=== PATIENT | female | born 1965 | race Caucasian/White ===

== ENCOUNTER 2018-07-15 17:47 | Inpatient (IN) | payer MEDICARE ==
[~2018-07-15] VITALS: Ht 162.6 cm; Wt 74.1 kg
[2018-07-15] MEDS ORDERED: SOD CHLORIDE 0.9% 750 ML IV ONE (19:00)
[2018-07-15] MEDS ORDERED: LABETALOL HCL 20MG INJ IV ONE (19:30)
[2018-07-15] MEDS ORDERED: AMOX1TAB10 PO (19:43)
[2018-07-15] MEDS ORDERED: HYDR25TA6 PO (19:43)
[2018-07-15] MEDS ORDERED: INSULIN REGULAR, HUMAN 100 UNIT/1 ML 3ML VIAL SC ONE (20:30)
[2018-07-15] MEDS ORDERED: hydrALAzine 20 MG INJ IV ONE (20:30)
[2018-07-15] MEDS: ACCU-CHEK XX SCH ×4 (21:27→23:30)
[2018-07-15] MEDS ORDERED: INSULIN HUMAN REGULAR 100 UNIT in SOD CHLORIDE 0.9% 99 ML IV SCH ×2 (21:30→23:00)
[2018-07-15] MEDS ORDERED: DEXTROSE 50% 50 ML SYRINGE IV PRN ×4 (21:30→22:30)
--- NOTE | 2018-07-15 21:43 | ERD ---
ER Documentation Chief Complaint Chief Complaint sent from clinic d/t high blood sugar 700s; has not taken insulin 6 mos HPI This is a 53-year-old female with a history of diabetes and hypertension, who presents for evaluation of a blood sugar greater than 700. Patient also with hypertension, she is on lisinopril and Lasix (she does not have a history of CHF), but had been given these medications by her primary care doctor in [facility]. Over the last 6 months, she has felt depressed about the state of her health, and has discontinued her medications, she denies any suicidal or homicidal ideations. She has now moved to [place], where her daughter is helping her out, she denies chest pain or shortness of breath. She has not had any confusion, no fever. ROS All systems reviewed and are negative except as per history of present illness. Medications Home Meds Reported Medications Hydrochlorothiazide* (Hydrochlorothiazide*) 25 Mg Tab, 25 MG PO DAILY, #30 TAB 07/15/18 Amoxicillin/Potassium Clav (Amox-Clav 875-125 mg Tablet) 875-125 mg Tab, 1 TAB PO BID, #20 TAB 07/15/18 Allergies Allergies: Coded Allergies: No Known Allergy (Unverified , 07/15/18) PMhx/Soc History of Surgery: Yes (eye, nose, c sections x3, tonsillectomy ) Anesthesia Reaction: No Hx Neurological Disorder: No Hx Respiratory Disorders: No Hx Cardiac Disorders: Yes (htn, high cholesterol ) Hx Psychiatric Problems: No Hx Miscellaneous Medical Probl: Yes (hyperthyroidism, DM) Hx Alcohol Use: No Hx Substance Use: No Hx Tobacco Use: No Smoking Status: Former smoker Physical Exam Vitals Vital Signs Date Temp Pulse Resp B/P (MAP) Pulse Ox O2 O2 Flow FiO2 Time Delivery Rate 07/15/18 86 16 120/70 100 Room Air 20:49 (87) 07/15/18 98.6 80 13 190/63 99 Room Air 20:16 (105) 07/15/18 79 11 193/65 100 Room Air 20:00 (107) 07/15/18 75 15 213/87 100 Room Air 19:00 (129) 07/15/18 74 14 202/104 99 Room Air 18:51 (136) 07/15/18 97.0 85 20 245/108 100 17:58 (153) Physical Exam Const: No acute distress, nontoxic, afebrile, 53-year-old female who appears older than her stated age Head: Atraumatic Eyes: Normal Conjunctiva ENT: Normal External Ears, Nose and Mouth. Neck: Full range of motion. No meningismus. Resp: Clear to auscultation bilaterally Cardio: Regular rate and rhythm, no murmurs Abd: Soft, non tender, non distended. Normal bowel sounds Skin: No petechiae or rashes Back: No midline or flank tenderness Ext: No cyanosis, or edema Neur: Awake and alert Psych: Normal Mood and Affect Result Diagram: 07/15/187 07/15/18 185 Results 24 hrs Laboratory Tests Test 07/15/18 17:58 07/15/18 18:37 07/15/18 18:57 07/15/18 20:21 Bedside Glucose > 595 mg/dL > 595 mg/dL Blood Gas Blood venous Specimen Source Arterial Blood 07/15/2018 7:00:28 Date Drawn PM Arterial Blood VENOUS LINE Gas Puncture Site [place] Test N/A Venous Blood pH 7.332 Venous Blood pCO2 44.0 mmHG (Temp Corrected) Venous Blood pO2 25.0 mmHG (Temp Corrected) Venous Blood HCO3 22.8 mmol/L Venous Blood 49.6 mmHG Oxygen Saturation Venous Blood Base -3.1 mmol/L Excess Venous Blood 11.7 g/dl Total Hemoglobin Venous Blood 49.4 % Oxyhemoglobin Venous Blood 0.1 % Methemoglobin Carboxyhemoglobin 0.4 % Blood Gas 37.0 C Temperature Blood Gas ROOM AIR Modality FiO2 21.0 % Blood Gas MG Notified Whom Blood Gas 07/15/2018 7:06:20 Notified Time PM White Blood Count 12.1 10^3/ul Red Blood Count 4.31 10^6/ul Hemoglobin 11.3 g/dl Hematocrit 35.6 % Mean Corpuscular 82.6 fl Volume Mean Corpuscular 26.2 pg Hemoglobin Mean Corpuscular 31.7 g/dl Hemoglobin Concen t Red Cell 14.0 % Distribution Width Platelet Count 356 10^3/UL Mean Platelet 12.2 fl Volume Immature 1.200 % Granulocytes % Neutrophils % 70.0 % Lymphocytes % 18.7 % Monocytes % 7.8 % Eosinophils % 1.6 % Basophils % 0.7 % Nucleated Red 0.0 /100WBC Blood Cells % Immature 0.150 10^3/ul Granulocytes # Neutrophils # 8.5 10^3/ul Lymphocytes # 2.3 10^3/ul Monocytes # 0.9 10^3/ul Eosinophils # 0.2 10^3/ul Basophils # 0.1 10^3/ul Nucleated Red 0.0 10^3/ul Blood Cells # Prothrombin Time 11.8 Sec Prothrombin Time 0.9 Ratio INR International 0.86 Normalized Ratio Sodium Level 124 mmol/L Potassium Level 3.8 mmol/L Chloride Level 93 mmol/L Carbon Dioxide 24 mmol/L Level Anion Gap 7 Blood Urea 35 mg/dl Nitrogen Creatinine 2.02 mg/dl Est Glomerular 26 mL/min Filtrat Rate mL/min Glucose Level 854 mg/dl Calcium Level 8.6 mg/dl Phosphorus Level 4.9 mg/dl Magnesium Level 2.0 mg/dl Total Bilirubin 0.3 mg/dl Direct Bilirubin 0.00 mg/dl Indirect 0.3 mg/dl Bilirubin Aspartate Amino 16 IU/L Transf (AST/SGOT) Alanine 7 IU/L Aminotransferase (ALT/SGPT) Alkaline 298 IU/L Phosphatase Troponin I < 0.012 ng/ml Total Protein 6.6 g/dl Albumin 2.9 g/dl Globulin 3.70 g/dl Albumin/Globulin 0.78 Ratio Test 07/15/18 21:17 Bedside Glucose > 595 mg/dL Current Medications Medications Dose Sig/Esme Start Time Status Last (Trade) Ordered Route PRN Stop Time Admin Dose Reason Admin Sodium 750 ml @ ONCE ONCE 07/15/18 DC 07/15/18 Chloride 750 mls/hr IV 19:00 07/15/18 19:05 19:59 Labetalol 20 mg ONCE ONCE 07/15/18 DC 07/15/18 HCl IV 19:30 07/15/18 19:37 (Labetalol) 19:31 Insulin 20 unit ONCE ONCE 07/15/18 DC 07/15/18 Human SC 20:30 07/15/18 20:25 Regular 20:31 (Humulin R) Hydralazine 20 mg ONCE ONCE 07/15/18 DC 07/15/18 HCl IV 20:30 07/15/18 20:25 (Apresoline) 20:31 Discontinue PROTOCOL 07/15/18 DC Miscellaneous all previ... ONCE XX 21:30 07/15/18 21:31 Information (* Miscellaneous Pharmacy Order) Diagnostic 1 ea Q1H XX 07/15/18 07/15/18 Test (Pha) 21:30 21:27 (Accu-Chek) Insulin 100 ml @ 0 PER 07/15/18 Human mls/hr PROTOCOL IV 21:30 Regular 100 unit/ Sodium Chloride Treatment Per 07/15/18 Miscellaneous of protocol XX 21:30 Hypoglycemia: Information 1.BG 51... (* Miscellaneous Pharmacy Order) Dextrose 25 ml Q15M PRN 07/15/18 (D50w IV 21:30 Syringe) .DECREASED GLUCOSE Dextrose 50 ml Q15M PRN 07/15/18 (D50w IV 21:30 Syringe) .DECREASED GLUCOSE Procedures/MDM This is a 53-year-old female presents for reduction of hypertension hyperglycemia. Her blood pressure was initially in the 200s systolics, she was given a dose of labetalol as well as hydralazine, with improvement of her blood pressure. At no time did the patient have chest pain, headache, confusion or any signs of hypertensive emergency. She had no evidence of infection, her blood sugar was noted to be significantly elevated, however she had a normal bicarb, and no anion gap acidosis. She had no evidence of a hyperosmolar state, with no abnormal mental state, and no evidence of DKA. She is given a dose of subcu insulin, however her blood glucose continued to be elevated, that she required admission to the ICU for blood glucose control. Accepting Care Team: Current data and ongoing care discussed. Primary: El Consulting: None Outstanding Data: none Critical Care Time: 35 minutes Treatments/Evaluations: Close monitoring and treatment of unstable vital signs, cardiorespiratory, and neurologic status, while maintaining tight balance of fluid, respiratory, and cardiac interventions. This time includes discussing the case with the patient and the patient's family. This time does not include all procedures stated elsewhere in this record. This time also includes reviewing old records, labs and radiological studies. This time includes examining and re- examining the patient. Additionally, this time also includes arranging care with admitting and consulting physicians. EKG: Rate/Rhythm: Normal Sinus Rhythm QRS, ST, T-waves: No changes consistent w/ acute ischemia Impression: No evidence of ischemia or arrhythmia Departure Diagnosis: Primary Impression: Hyperglycemia Additional Impressions: Hypertension Hypertension type: unspecified Qualified Codes: I10 - Essential (primary) hypertension Chronic kidney disease Chronic kidney disease stage: unspecified stage Qualified Codes: N18.9 - Chronic kidney disease, unspecified Condition: Serious ESQUIVELMAICO MD July 15, 2018 21:43
[2018-07-15] MEDS ORDERED: SOD CHLORIDE 0.9% 1,000 ML IV SCH (22:13)
[2018-07-15] MEDS ORDERED: ALBUTEROL/IPRATROPIUM (NEB) 3 ML AMP NEB PRN (22:30)
[2018-07-15] MEDS ORDERED: ONDANSETRON 4 MG INJ IV PRN (22:30)
[2018-07-15 23:35] VITALS: BP 154/64; PULSE 78; RESP 13
[2018-07-15 23:37] VITALS: PULSE 79
[2018-07-15 23:40] VITALS: PULSE 74; RESP 15
[2018-07-16] VITALS (27 sets, daily range): BP systolic 95–168; BP diastolic 49–94; PULSE 69–82; RESP 10–27; Ht 162.6 cm; Wt 74.1 kg
[2018-07-16] MEDS: ACCU-CHEK XX SCH ×8 (01:07→07:26)
[2018-07-16] MEDS ORDERED: morphine 4 MG/ML VIAL IV ONE (01:14)
[2018-07-16] MEDS ORDERED: MAGNESIUM SULFATE 2 GM/50 ML 50 ML IVPB ONE (02:00)
[2018-07-16] MEDS ORDERED: POTASSIUM CHLORIDE 20 MEQ in SOD CHLORIDE 0.9% 1,000 ML IV SCH (02:51)
[2018-07-16] MEDS: NS + KCL 20 MEQ 1,000 ML IV SCH ×3 (03:00→23:00)
[2018-07-16] MEDS ORDERED: POTASSIUM PHOSPHATE 30 MM in SOD CHLORIDE 0.9% 250 ML IVPB ONE (04:00)
--- NOTE | 2018-07-16 06:03 | HP ---
Date/Time of Note Date/Time of Note DATE: 07/16/18 TIME: 05:58 Assessment/Plan VTE Prophylaxis Pharmacological prophylaxis: heparin Lines/Catheters IV Catheter Type (from Nrsg): Peripheral IV Assessment/Plan Assessment/Plan 1. Hyperglycemia: Patient off medication x6 months -Blood glucose improved on insulin drip -Continue ICU monitoring -Check A1c 2. Presumed acute on CKD -NS IVF -Urine electrolytes -Renal ultrasound 3. Hypertensive emergency: BP better controlled -Patient was initially on Cardene drip in the ER -Adjust BP meds as needed 4. SIRS: Likely stress-induced -Monitor for now 5. Hypothyroidism: Check TSH 6. Normocytic anemia -Check FOBT and ferritin/iron to evaluate for GI bleed and iron deficiency Result Diagram: 07/15/18 1857 07/16/18 0118 Results 24hrs Laboratory Tests Test 07/15/18 17:58 07/15/18 18:37 07/15/18 18:57 07/15/18 20:21 Bedside Glucose > 595 *H > 595 *H Blood Gas Specimen Blood venous Source Arterial Blood 07/15/2018 7:00:28 Date Drawn PM Arterial Blood Gas VENOUS LINE Puncture Site [place] Test N/A Venous Blood pH 7.332 Venous Blood pCO2 44.0 (Temp Corrected) Venous Blood pO2 25.0 (Temp Corrected) Venous Blood HCO3 22.8 Venous Blood 49.6 L Oxygen Saturation Venous Blood Base -3.1 Excess Venous Blood Total 11.7 Hemoglobin Venous Blood 49.4 Oxyhemoglobin Venous Blood 0.1 Methemoglobin Carboxyhemoglobin 0.4 Blood Gas 37.0 Temperature Blood Gas Modality ROOM AIR FiO2 21.0 Blood Gas Notified MG Whom Blood Gas Notified 07/15/2018 7:06:20 Time PM White Blood Count 12.1 H Red Blood Count 4.31 Hemoglobin 11.3 L Hematocrit 35.6 L Mean Corpuscular 82.6 Volume Mean Corpuscular 26.2 L Hemoglobin Mean Corpuscular 31.7 L Hemoglobin Concent Red Cell 14.0 Distribution Width Platelet Count 356 Mean Platelet 12.2 H Volume Immature 1.200 H Granulocytes % Neutrophils % 70.0 Lymphocytes % 18.7 Monocytes % 7.8 Eosinophils % 1.6 Basophils % 0.7 Nucleated Red 0.0 Blood Cells % Immature 0.150 H Granulocytes # Neutrophils # 8.5 H Lymphocytes # 2.3 Monocytes # 0.9 Eosinophils # 0.2 Basophils # 0.1 Nucleated Red 0.0 Blood Cells # Prothrombin Time 11.8 L Prothrombin Time 0.9 Ratio INR International 0.86 Normalized Ratio Sodium Level 124 L Potassium Level 3.8 Chloride Level 93 L Carbon Dioxide 24 Level Anion Gap 7 Blood Urea 35 H Nitrogen Creatinine 2.02 H Est Glomerular 26 L Filtrat Rate mL/min Glucose Level 854 *H Calcium Level 8.6 Phosphorus Level 4.9 Magnesium Level 2.0 Total Bilirubin 0.3 Direct Bilirubin 0.00 Indirect Bilirubin 0.3 Aspartate Amino 16 Transf (AST/SGOT) Alanine 7 L Aminotransferase ( ALT/SGPT) Alkaline 298 H Phosphatase Troponin I < 0.012 Total Protein 6.6 Albumin 2.9 L Globulin 3.70 H Albumin/Globulin 0.78 Ratio Test 07/15/18 21:17 07/15/18 22:00 07/15/18 22:25 07/15/18 23:29 Bedside Glucose > 595 *H > 595 *H 575 *H Urine Color COLORLESS Urine Clarity CLEAR Urine pH 7.0 Urine Specific 1.016 Provencal Urine Ketones TRACE A Urine Nitrite NEGATIVE Urine Bilirubin NEGATIVE Urine Urobilinogen NEGATIVE Urine Leukocyte NEGATIVE Esterase Urine Microscopic 1 RBC Urine Microscopic 0 WBC Urine Hemoglobin NEGATIVE Urine Glucose 3+ H Urine Total 3+ H Protein Test 07/16/18 00:59 07/16/18 01:18 07/16/18 01:40 07/16/18 02:34 Bedside Glucose 297 H 258 H 202 Sodium Level 134 L Potassium Level 2.8 *L Chloride Level 104 # Carbon Dioxide 18 L Level Anion Gap 12 Blood Urea 34 H Nitrogen Creatinine 1.92 H Est Glomerular 27 L Filtrat Rate mL/min Glucose Level 276 #H Calcium Level 9.3 Phosphorus Level 1.7 #L Magnesium Level 1.8 Test 07/16/18 03:47 07/16/18 04:39 07/16/18 05:15 Bedside Glucose 131 148 138 HPI/ROS Admit Date/Time Admit Date/Time July 15, 2018 at 21:21 Hx of Present Illness This is a 53-year-old female with a history of hypertension and diabetes who presented to the ER complaining of generalized weakness, feeling depressed. She has not taken her medication for 6 months. She recently moved from [place] to live with her daughter. When presented to ER, blood pressure was 245/108. She was found to have a blood glucose of around 850, no DKA. Creatinine 2, WBC 12,000, hemoglobin 11. She has been started on insulin drip and admitted to ICU. PMH/Family/Social Past Medical History Constitutional: other (No acute distress) Head: normocephalic, atraumatic Eyes: EOMI, PERRL Respiratory: other (no wheezing or Rhonchi) Cardiovascular: normal pulse Gastrointestinal: soft, non-tender Extremities: normal pulses Medications Current Medications Insulin Human Regular 100 unit/ Sodium Chloride 100 ml @ 0 mls/hr PER PROTOCOL IV Last administered on 07/15/18at 21:48; Admin Dose 6 MLS/HR; Start 07/15/18 at 21:30 Miscellaneous Information (* Miscellaneous Pharmacy Order) Treatment of Hypoglycemia: 1.BG 51... Per protocol XX ; Start 07/15/18 at 21:30 Ondansetron HCl (Zofran Inj) 4 mg Q6H PRN IV NAUSEA AND/OR VOMITING Last administered on 07/16/18at 05:16; Admin Dose 4 MG; Start 07/15/18 at 22:30 Albuterol/ Ipratropium (Duoneb) 3 ml Q2H RESP THERAPY PRN NEB SHORTNESS OF BREATH; Start 07/15/18 at 22:30 Acetaminophen (Tylenol Liquid) 650 mg Q6H PRN PO PAIN LEVEL 1-3 OR FEVER; Start 07/15/18 at 22:30 Famotidine (Pepcid Iv) 20 mg DAILY IV ; Start 07/16/18 at 09:00 Heparin Sodium (Porcine) (Heparin (5000 Units/1ml)) 5,000 unit Q12 SC ; Start 07/16/18 at 09:00 Diagnostic Test (Pha) (Accu-Chek) 1 ea Q1H XX Last administered on 07/16/18at 05:15; Admin Dose 1 EA; Start 07/15/18 at 22:30 Insulin Human Regular 100 unit/ Sodium Chloride 100 ml @ 0 mls/hr PER PROTOCOL IV ; Start 07/15/18 at 23:00 Miscellaneous Information (* Miscellaneous Pharmacy Order) Treatment of Hypoglycemia: 1.BG 51... Per protocol XX ; Start 07/15/18 at 22:30 Dextrose (D50w Syringe) 25 ml Q15M PRN IV .DECREASED GLUCOSE; Start 07/15/18 at 22:30 Dextrose (D50w Syringe) 50 ml Q15M PRN IV .DECREASED GLUCOSE; Start 07/15/18 at 22:30 Potassium Phosphate 30 mm/ Sodium Chloride 260 ml @ 65 mls/hr ONCE ONCE IVPB Last administered on 07/16/18at 04:07; Admin Dose 65 MLS/HR; Start 07/16/18 at 04:00; Stop 07/16/18 at 07:59 Potassium Chloride/Sodium Chloride 1,000 ml @ 100 mls/hr Q10H IV Last admin istered on 07/16/18at 03:00; Admin Dose 100 MLS/HR; Start 07/16/18 at 03:00 Coded Allergies: No Known Allergy (Unverified , 07/15/18) Social History Smoking Status: Former smoker Exam/Review of Systems Vital Signs Vitals Vital Signs Date Temp Pulse Resp B/P (MAP) Pulse Ox O2 O2 Flow FiO2 Time Delivery Rate 07/16/18 74 00:00 07/15/18 15 99 23:40 07/15/18 98.7 154/64 Room Air 23:35 (94) Intake and Output 07/15/18 07/15/18 07/16/18 1515:00 23:00 07:00 IntakeIntake Total 750 ml 487 ml BalanceBalance 750 ml 487 ml KEITH FRAIRE MD July 16, 2018 06:03
[2018-07-16] MEDS: FAMOTIDINE 20 MG INJ IV SCH (08:45)
[2018-07-16] MEDS: HEPARIN 5,000 UNIT/1 ML VIAL SC SCH ×2 (08:45→20:39)
[2018-07-16] MEDS: ACETAMINOPHEN 650MG/20.3ML CUP PO PRN (08:51)
[2018-07-16] MEDS ORDERED: ACCU-CHEK XX SCH (09:00)
--- NOTE | 2018-07-16 09:05 | CONS ---
Assessment/Plan Assessment/Plan Assessment/Plan (Daily) 1. acute kidney injury on CKD III 2. HTN emergency 3. h/o possible CKD III due to DM nephropathy and HTN nephrosclerosis 4. H/O HTN 5. Anemia of CKD III with Iron deficiency Plan: seen in ICU, BUN/CR today is 31/1.81,other electrolyte stable ramirez tart IV iron Ferrlecti x 5 days for iron deficiency on NTG Drip, IVF NS at 150 cc/hr will order CKD work up including Urine Na ,Urine prot/cr ration, urine eosinophils, Uric acid, CK total Renal Us to asssess for CKD Thanks for consultation, I will continue to follow up Consultation Date/Type/Reason Admit Date/Time July 15, 2018 at 21:21 Date of Consultation: July 16, 2018 Type of Consult NEPHROLOGY Reason for Consultation acute kidney injury on CKD III, Hypokalemia, Acidosis Requesting Provider: MAICO LUBIN Date/Time of Note DATE: 07/16/18 TIME: 09:05 Hx of Present Illness 53-year-old female with a history of hypertension and diabetes who presented to the ER complaining of generalized weakness, feeling depressed. She has not taken her medication for 6 months. She recently moved from [place] to live with her daughter. When presented to ER, blood pressure was 245/108. She was found to have a blood glucose of around 850, no DKA. Creatinine 2, WBC 12,000, hemoglobin 11. She has been started on insulin drip and admitted to ICU. BUN/CR 31/1.81 on admission, pt denies any h/o CKD, no h/o kidney stones/kidney disease Subjective hx not possible: other (weakness, fatigue, tired, High BP ) Constitutional: poor po ENT: no complaints Respiratory: pleuritic pain, shortness of breath Cardiovascular: lightheadedness Gastrointestinal: decreased appetite Genitourinary: no complaints Musculoskeletal: no complaints Skin: no complaints Neurologic: no complaints Endocrine: no complaints Lymphatic: no complaints Psychological: no complaints Immunologic: no complaints Past Medical History Medical History: high cholesterol, hypertension Home Meds Reported Medications Hydrochlorothiazide* (Hydrochlorothiazide*) 25 Mg Tab, 25 MG PO DAILY, #30 TAB 07/15/18 Amoxicillin/Potassium Clav (Amox-Clav 875-125 mg Tablet) 875-125 mg Tab, 1 TAB PO BID, #20 TAB 07/15/18 Medications Current Medications Insulin Human Regular 100 unit/ Sodium Chloride 100 ml @ 0 mls/hr PER PROTOCOL IV Last administered on 07/15/18at 21:48; Admin Dose 6 MLS/HR; Start 07/15/18 at 21:30 Miscellaneous Information (* Miscellaneous Pharmacy Order) Treatment of Hypoglycemia: 1.BG 51... Per protocol XX ; Start 07/15/18 at 21:30 Ondansetron HCl (Zofran Inj) 4 mg Q6H PRN IV NAUSEA AND/OR VOMITING Last administered on 07/16/18at 05:16; Admin Dose 4 MG; Start 07/15/18 at 22:30 Albuterol/ Ipratropium (Duoneb) 3 ml Q2H RESP THERAPY PRN NEB SHORTNESS OF BREATH; Start 07/15/18 at 22:30 Acetaminophen (Tylenol Liquid) 650 mg Q6H PRN PO PAIN LEVEL 1-3 OR FEVER Last administered on 07/16/18at 08:51; Admin Dose 650 MG; Start 07/15/18 at 22:30 Famotidine (Pepcid Iv) 20 mg DAILY IV Last administered on 07/16/18at 08:45; Admin Dose 20 MG; Start 07/16/18 at 09:00 Heparin Sodium (Porcine) (Heparin (5000 Units/1ml)) 5,000 unit Q12 SC Last administered on 07/16/18at 08:45; Admin Dose 5,000 UNIT; Start 07/16/18 at 09:00 Insulin Human Regular 100 unit/ Sodium Chloride 100 ml @ 0 mls/hr PER PROTOCOL IV ; Start 07/15/18 at 23:00 Miscellaneous Information (* Miscellaneous Pharmacy Order) Treatment of Hypoglycemia: 1.BG 51... Per protocol XX ; Start 07/15/18 at 22:30 Dextrose (D50w Syringe) 25 ml Q15M PRN IV .DECREASED GLUCOSE; Start 07/15/18 at 22:30 Dextrose (D50w Syringe) 50 ml Q15M PRN IV .DECREASED GLUCOSE; Start 07/15/18 at 22:30 Potassium Chloride/Sodium Chloride 1,000 ml @ 100 mls/hr Q10H IV Last administered on 07/16/18at 03:00; Admin Dose 100 MLS/HR; Start 07/16/18 at 03:00 Diagnostic Test (Pha) (Accu-Chek) 1 ea Q1H XX ; Start 07/16/18 at 09:00 Allergies: Coded Allergies: No Known Allergy (Unverified , 07/15/18) Past Surgical History Past Surgical Hx: other (tonsillectoy, C section, Nose surgery ) Family History Significant Family History: no pertinent family hx Social History Alcohol Use: none Smoking Status: Former smoker Drug Use: none Exam/Review of Systems Exam Vitals Vital Signs Date Temp Pulse Resp B/P (MAP) Pulse Ox O2 O2 Flow FiO2 Time Delivery Rate 07/16/18 97.8 77 15 124/54 98 Room Air 08:00 (77) Intake and Output 07/15/18 07/15/18 07/16/18 1515:00 23:00 07:00 IntakeIntake Total 750 ml 620.0 ml BalanceBalance 750 ml 620.0 ml Constitutional: alert Psych: no complaints Head: normocephalic Eyes: nl conjunctiva ENMT: nl external ears & nose Neck: supple, non-tender Respiratory: clear to auscultation, normal air movement, diminished breath sounds Cardiovascular: regular rate and rhythm, nl pulses Gastrointestinal: soft, non-tender Musculoskeletal: nl extremities to inspection Extremities: normal pulses Neurological: TRUCK DOCK MATERIAL MOVER II-XII intact, nl mental status, nl speech, nl strength Skin: nl turgor Lymph: nl lymph nodes Results Result Diagram: 07/15/18 1857 07/16/18 0118 Results 24hrs Laboratory Tests Test 07/15/18 17:58 07/15/18 18:37 07/15/18 18:57 07/15/18 20:21 Bedside Glucose > 595 *H > 595 *H Blood Gas Specimen Blood venous Source Arterial Blood 07/15/2018 7:00:28 Date Drawn PM Arterial Blood Gas VENOUS LINE Puncture Site [place] Test N/A Venous Blood pH 7.332 Venous Blood pCO2 44.0 (Temp Corrected) Venous Blood pO2 25.0 (Temp Corrected) Venous Blood HCO3 22.8 Venous Blood 49.6 L Oxygen Saturation Venous Blood Base -3.1 Excess Venous Blood Total 11.7 Hemoglobin Venous Blood 49.4 Oxyhemoglobin Venous Blood 0.1 Methemoglobin Carboxyhemoglobin 0.4 Blood Gas 37.0 Temperature Blood Gas Modality ROOM AIR FiO2 21.0 Blood Gas Notified MG Whom Blood Gas Notified 07/15/2018 7:06:20 Time PM White Blood Count 12.1 H Red Blood Count 4.31 Hemoglobin 11.3 L Hematocrit 35.6 L Mean Corpuscular 82.6 Volume Mean Corpuscular 26.2 L Hemoglobin Mean Corpuscular 31.7 L Hemoglobin Concent Red Cell 14.0 Distribution Width Platelet Count 356 Mean Platelet 12.2 H Volume Immature 1.200 H Granulocytes % Neutrophils % 70.0 Lymphocytes % 18.7 Monocytes % 7.8 Eosinophils % 1.6 Basophils % 0.7 Nucleated Red 0.0 Blood Cells % Immature 0.150 H Granulocytes # Neutrophils # 8.5 H Lymphocytes # 2.3 Monocytes # 0.9 Eosinophils # 0.2 Basophils # 0.1 Nucleated Red 0.0 Blood Cells # Prothrombin Time 11.8 L Prothrombin Time 0.9 Ratio INR International 0.86 Normalized Ratio Sodium Level 124 L Potassium Level 3.8 Chloride Level 93 L Carbon Dioxide 24 Level Anion Gap 7 Blood Urea 35 H Nitrogen Creatinine 2.02 H Est Glomerular 26 L Filtrat Rate mL/min Glucose Level 854 *H Calcium Level 8.6 Phosphorus Level 4.9 Magnesium Level 2.0 Total Bilirubin 0.3 Direct Bilirubin 0.00 Indirect Bilirubin 0.3 Aspartate Amino 16 Transf (AST/SGOT) Alanine 7 L Aminotransferase ( ALT/SGPT) Alkaline 298 H Phosphatase Troponin I < 0.012 Total Protein 6.6 Albumin 2.9 L Globulin 3.70 H Albumin/Globulin 0.78 Ratio Test 07/15/18 21:17 07/15/18 22:00 07/15/18 22:25 07/15/18 23:29 Bedside Glucose > 595 *H > 595 *H 575 *H Urine Color COLORLESS Urine Clarity CLEAR Urine pH 7.0 Urine Specific 1.016 [place] Urine Ketones TRACE A Urine Nitrite NEGATIVE Urine Bilirubin NEGATIVE Urine Urobilinogen NEGATIVE Urine Leukocyte NEGATIVE Esterase Urine Microscopic 1 RBC Urine Microscopic 0 WBC Urine Hemoglobin NEGATIVE Urine Glucose 3+ H Urine Total 3+ H Protein Test 07/16/18 00:59 07/16/18 01:18 07/16/18 01:40 07/16/18 02:34 Bedside Glucose 297 H 258 H 202 Sodium Level 134 L Potassium Level 2.8 *L Chloride Level 104 # Carbon Dioxide 18 L Level Anion Gap 12 Blood Urea 34 H Nitrogen Creatinine 1.92 H Est Glomerular 27 L Filtrat Rate mL/min Glucose Level 276 #H Calcium Level 9.3 Phosphorus Level 1.7 #L Magnesium Level 1.8 Test 07/16/18 03:47 07/16/18 04:39 07/16/18 05:15 07/16/18 06:37 Bedside Glucose 131 148 138 148 Test 07/16/18 07:26 07/16/18 08:10 Bedside Glucose 132 119 Medications Medication Current Medications Insulin Human Regular 100 unit/ Sodium Chloride 100 ml @ 0 mls/hr PER PROTOCOL IV Last administered on 07/15/18at 21:48; Admin Dose 6 MLS/HR; Start 07/15/18 at 21:30 Miscellaneous Information (* Miscellaneous Pharmacy Order) Treatment of Hypoglycemia: 1.BG 51... Per protocol XX ; Start 07/15/18 at 21:30 Ondansetron HCl (Zofran Inj) 4 mg Q6H PRN IV NAUSEA AND/OR VOMITING Last administered on 07/16/18at 05:16; Admin Dose 4 MG; Start 07/15/18 at 22:30 Albuterol/ Ipratropium (Duoneb) 3 ml Q2H RESP THERAPY PRN NEB SHORTNESS OF BREATH; Start 07/15/18 at 22:30 Acetaminophen (Tylenol Liquid) 650 mg Q6H PRN PO PAIN LEVEL 1-3 OR FEVER Last administered on 07/16/18at 08:51; Admin Dose 650 MG; Start 07/15/18 at 22:30 Famotidine (Pepcid Iv) 20 mg DAILY IV Last administered on 07/16/18at 08:45; Admin Dose 20 MG; Start 07/16/18 at 09:00 Heparin Sodium (Porcine) (Heparin (5000 Units/1ml)) 5,000 unit Q12 SC Last administered on 07/16/18at 08:45; Admin Dose 5,000 UNIT; Start 07/16/18 at 09:00 Insulin Human Regular 100 unit/ Sodium Chloride 100 ml @ 0 mls/hr PER PROTOCOL IV ; Start 07/15/18 at 23:00 Miscellaneous Information (* Miscellaneous Pharmacy Order) Treatment of Hypoglycemia: 1.BG 51... Per protocol XX ; Start 07/15/18 at 22:30 Dextrose (D50w Syringe) 25 ml Q15M PRN IV .DECREASED GLUCOSE; Start 07/15/18 at 22:30 Dextrose (D50w Syringe) 50 ml Q15M PRN IV .DECREASED GLUCOSE; Start 07/15/18 at 22:30 Potassium Chloride/Sodium Chloride 1,000 ml @ 100 mls/hr Q10H IV Last administered on 07/16/18at 03:00; Admin Dose 100 MLS/HR; Start 07/16/18 at 03:00 Diagnostic Test (Pha) (Accu-Chek) 1 ea Q1H XX ; Start 07/16/18 at 09:00 GLORIA MANSFIELD MD July 16, 2018 09:05
--- NOTE | 2018-07-16 09:46 | PN ---
Date/Time of Note Date/Time of Note DATE: 07/16/18 TIME: 09:37 Assessment/Plan VTE Prophylaxis SCD applied (from Nsg): No SCD contraindicated: other Pharmacological prophylaxis: heparin Lines/Catheters IV Catheter Type (from Nrsg): Peripheral IV Assessment/Plan Hospital Course S: b sugars are much improved, patient still on the low rate of insulin drip and IV fluids. Seen by renal team earlier today. O: VS- see below PE: Gen: No acute distress, lying in bed Head: Atraumatic Eyes: Normal Conjunctiva ENT: Normal External Ears, Nose and Mouth. Neck: Full range of motion. No meningismus. Resp: Clear to auscultation bilaterally Cardio: Regular rate and rhythm, no murmurs Abd: Soft, non tender, non distended. Normal bowel sounds Ext: No cyanosis, or edema Neur: No focal deficits Assessment/Plan: 53-year-old female who presents with: 1. Hyperglycemia: Sugars improved now, patient was off home diabetes medication x6 months. A1c is pending. Presentation appears to be secondary to hyperosmolar nonketotic state. -We will switch to subcu insulin and wean off insulin drip now since the sugars are in the mid 100 range. Follow-up A1c -Consider certified lactation educator consult -Continue IV fluids and electrolyte repletion as needed 2. Presumed acute on CKD -likely prerenal source -For now continue NS IVF -Follow-up urine electrolytes and renal ultrasound 3. Hypertensive emergency: BP better controlled now-Patient was initially on Cardene drip in the ER. -Adjust BP meds as needed 4. SIRS: Likely stress-induced -Monitor for now, continue IV fluids, follow-up any pending culture results 5. Hypothyroidism: Follow-up levels of TSH 6. Normocytic anemia -Follow-up FOBT and ferritin/iron to evaluate for GI bleed and iron deficiency Critical care time spent patient care today equals 45 minutes. Result Diagram: 07/16/18 0907/16/18 09 Results 24hrs Laboratory Tests Test 07/15/18 17:58 07/15/18 18:37 07/15/18 18:57 07/15/18 20:21 Bedside Glucose > 595 *H > 595 *H Blood Gas Specimen Blood venous Source Arterial Blood 07/15/2018 7:00:28 Date Drawn PM Arterial Blood Gas VENOUS LINE Puncture Site [place] Test N/A Venous Blood pH 7.332 Venous Blood pCO2 44.0 (Temp Corrected) Venous Blood pO2 25.0 (Temp Corrected) Venous Blood HCO3 22.8 Venous Blood 49.6 L Oxygen Saturation Venous Blood Base -3.1 Excess Venous Blood Total 11.7 Hemoglobin Venous Blood 49.4 Oxyhemoglobin Venous Blood 0.1 Methemoglobin Carboxyhemoglobin 0.4 Blood Gas 37.0 Temperature Blood Gas Modality ROOM AIR FiO2 21.0 Blood Gas Notified MG Whom Blood Gas Notified 07/15/2018 7:06:20 Time PM White Blood Count 12.1 H Red Blood Count 4.31 Hemoglobin 11.3 L Hematocrit 35.6 L Mean Corpuscular 82.6 Volume Mean Corpuscular 26.2 L Hemoglobin Mean Corpuscular 31.7 L Hemoglobin Concent Red Cell 14.0 Distribution Width Platelet Count 356 Mean Platelet 12.2 H Volume Immature 1.200 H Granulocytes % Neutrophils % 70.0 Lymphocytes % 18.7 Monocytes % 7.8 Eosinophils % 1.6 Basophils % 0.7 Nucleated Red 0.0 Blood Cells % Immature 0.150 H Granulocytes # Neutrophils # 8.5 H Lymphocytes # 2.3 Monocytes # 0.9 Eosinophils # 0.2 Basophils # 0.1 Nucleated Red 0.0 Blood Cells # Prothrombin Time 11.8 L Prothrombin Time 0.9 Ratio INR International 0.86 Normalized Ratio Sodium Level 124 L Potassium Level 3.8 Chloride Level 93 L Carbon Dioxide 24 Level Anion Gap 7 Blood Urea 35 H Nitrogen Creatinine 2.02 H Est Glomerular 26 L Filtrat Rate mL/min Glucose Level 854 *H Calcium Level 8.6 Phosphorus Level 4.9 Magnesium Level 2.0 Total Bilirubin 0.3 Direct Bilirubin 0.00 Indirect Bilirubin 0.3 Aspartate Amino 16 Transf (AST/SGOT) Alanine 7 L Aminotransferase ( ALT/SGPT) Alkaline 298 H Phosphatase Troponin I < 0.012 Total Protein 6.6 Albumin 2.9 L Globulin 3.70 H Albumin/Globulin 0.78 Ratio Test 07/15/18 21:17 07/15/18 22:00 07/15/18 22:25 07/15/18 23:29 Bedside Glucose > 595 *H > 595 *H 575 *H Urine Color COLORLESS Urine Clarity CLEAR Urine pH 7.0 Urine Specific 1.016 [place] Urine Ketones TRACE A Urine Nitrite NEGATIVE Urine Bilirubin NEGATIVE Urine Urobilinogen NEGATIVE Urine Leukocyte NEGATIVE Esterase Urine Microscopic 1 RBC Urine Microscopic 0 WBC Urine Hemoglobin NEGATIVE Urine Glucose 3+ H Urine Total 3+ H Protein Test 07/16/18 00:59 07/16/18 01:18 07/16/18 01:40 07/16/18 02:34 Bedside Glucose 297 H 258 H 202 Sodium Level 134 L Potassium Level 2.8 *L Chloride Level 104 # Carbon Dioxide 18 L Level Anion Gap 12 Blood Urea 34 H Nitrogen Creatinine 1.92 H Est Glomerular 27 L Filtrat Rate mL/min Glucose Level 276 #H Calcium Level 9.3 Phosphorus Level 1.7 #L Magnesium Level 1.8 Test 07/16/18 03:47 07/16/18 04:39 07/16/18 05:15 07/16/18 06:37 Bedside Glucose 131 148 138 148 Test 07/16/18 07:26 07/16/18 08:10 07/16/18 09:00 07/16/18 09:03 Bedside Glucose 132 119 153 White Blood Count 10.8 Red Blood Count 4.08 L Hemoglobin 10.8 L Hematocrit 32.2 L Mean Corpuscular 78.9 L Volume Mean Corpuscular 26.5 L Hemoglobin Mean Corpuscular 33.5 Hemoglobin Concent Red Cell 14.2 Distribution Width Platelet Count 355 Mean Platelet 11.6 H Volume Immature 1.300 H Granulocytes % Neutrophils % 77.3 H Lymphocytes % 15.1 Monocytes % 5.8 Eosinophils % 0.1 Basophils % 0.4 Nucleated Red 0.0 Blood Cells % Immature 0.140 H Granulocytes # Neutrophils # 8.4 H Lymphocytes # 1.6 Monocytes # 0.6 Eosinophils # 0.0 Basophils # 0.0 Nucleated Red 0.0 Blood Cells # Sodium Level 136 Potassium Level 4.2 Chloride Level 107 Carbon Dioxide 23 Level Anion Gap 6 Blood Urea 31 H Nitrogen Creatinine 1.81 H Est Glomerular 29 L Filtrat Rate mL/min Glucose Level 155 # Calcium Level 8.5 Magnesium Level 2.5 Total Bilirubin 0.2 Direct Bilirubin 0.00 Indirect Bilirubin 0.2 Aspartate Amino 19 Transf (AST/SGOT) Alanine 9 L Aminotransferase ( ALT/SGPT) Alkaline 192 H Phosphatase Total Protein 6.1 Albumin 2.6 L Globulin 3.50 H Albumin/Globulin 0.74 Ratio Triglycerides Pending Level Cholesterol Level Pending LDL Cholesterol, Pending Calculated HDL Cholesterol 32 L Cholesterol/HDL Pending Ratio Thyroid Pending Stimulating Hormone (TSH) Exam/Review of Systems Exam Vitals Vital Signs Date Temp Pulse Resp B/P (MAP) Pulse Ox O2 O2 Flow FiO2 Time Delivery Rate 07/16/18 97.8 77 15 124/54 98 Room Air 08:00 (77) Intake and Output 07/15/18 07/15/18 07/16/18 1414:59 22:59 06:59 IntakeIntake Total 750 ml 620.0 ml BalanceBalance 750 ml 620.0 ml Results Results 24hrs Laboratory Tests Test 07/15/18 17:58 07/15/18 18:37 07/15/18 18:57 07/15/18 20:21 Bedside Glucose > 595 *H > 595 *H Blood Gas Specimen Blood venous Source Arterial Blood 07/15/2018 7:00:28 Date Drawn PM Arterial Blood Gas VENOUS LINE Puncture Site [place] Test N/A Venous Blood pH 7.332 Venous Blood pCO2 44.0 (Temp Corrected) Venous Blood pO2 25.0 (Temp Corrected) Venous Blood HCO3 22.8 Venous Blood 49.6 L Oxygen Saturation Venous Blood Base -3.1 Excess Venous Blood Total 11.7 Hemoglobin Venous Blood 49.4 Oxyhemoglobin Venous Blood 0.1 Methemoglobin Carboxyhemoglobin 0.4 Blood Gas 37.0 Temperature Blood Gas Modality ROOM AIR FiO2 21.0 Blood Gas Notified MG Whom Blood Gas Notified 07/15/2018 7:06:20 Time PM White Blood Count 12.1 H Red Blood Count 4.31 Hemoglobin 11.3 L Hematocrit 35.6 L Mean Corpuscular 82.6 Volume Mean Corpuscular 26.2 L Hemoglobin Mean Corpuscular 31.7 L Hemoglobin Concent Red Cell 14.0 Distribution Width Platelet Count 356 Mean Platelet 12.2 H Volume Immature 1.200 H Granulocytes % Neutrophils % 70.0 Lymphocytes % 18.7 Monocytes % 7.8 Eosinophils % 1.6 Basophils % 0.7 Nucleated Red 0.0 Blood Cells % Immature 0.150 H Granulocytes # Neutrophils # 8.5 H Lymphocytes # 2.3 Monocytes # 0.9 Eosinophils # 0.2 Basophils # 0.1 Nucleated Red 0.0 Blood Cells # Prothrombin Time 11.8 L Prothrombin Time 0.9 Ratio INR International 0.86 Normalized Ratio Sodium Level 124 L Potassium Level 3.8 Chloride Level 93 L Carbon Dioxide 24 Level Anion Gap 7 Blood Urea 35 H Nitrogen Creatinine 2.02 H Est Glomerular 26 L Filtrat Rate mL/min Glucose Level 854 *H Calcium Level 8.6 Phosphorus Level 4.9 Magnesium Level 2.0 Total Bilirubin 0.3 Direct Bilirubin 0.00 Indirect Bilirubin 0.3 Aspartate Amino 16 Transf (AST/SGOT) Alanine 7 L Aminotransferase ( ALT/SGPT) Alkaline 298 H Phosphatase Troponin I < 0.012 Total Protein 6.6 Albumin 2.9 L Globulin 3.70 H Albumin/Globulin 0.78 Ratio Test 07/15/18 21:17 07/15/18 22:00 07/15/18 22:25 07/15/18 23:29 Bedside Glucose > 595 *H > 595 *H 575 *H Urine Color COLORLESS Urine Clarity CLEAR Urine pH 7.0 Urine Specific 1.016 [place] Urine Ketones TRACE A Urine Nitrite NEGATIVE Urine Bilirubin NEGATIVE Urine Urobilinogen NEGATIVE Urine Leukocyte NEGATIVE Esterase Urine Microscopic 1 RBC Urine Microscopic 0 WBC Urine Hemoglobin NEGATIVE Urine Glucose 3+ H Urine Total 3+ H Protein Test 07/16/18 00:59 07/16/18 01:18 07/16/18 01:40 07/16/18 02:34 Bedside Glucose 297 H 258 H 202 Sodium Level 134 L Potassium Level 2.8 *L Chloride Level 104 # Carbon Dioxide 18 L Level Anion Gap 12 Blood Urea 34 H Nitrogen Creatinine 1.92 H Est Glomerular 27 L Filtrat Rate mL/min Glucose Level 276 #H Calcium Level 9.3 Phosphorus Level 1.7 #L Magnesium Level 1.8 Test 07/16/18 03:47 07/16/18 04:39 07/16/18 05:15 07/16/18 06:37 Bedside Glucose 131 148 138 148 Test 07/16/18 07:26 07/16/18 08:10 07/16/18 09:00 07/16/18 09:03 Bedside Glucose 132 119 153 White Blood Count 10.8 Red Blood Count 4.08 L Hemoglobin 10.8 L Hematocrit 32.2 L Mean Corpuscular 78.9 L Volume Mean Corpuscular 26.5 L Hemoglobin Mean Corpuscular 33.5 Hemoglobin Concent Red Cell 14.2 Distribution Width Platelet Count 355 Mean Platelet 11.6 H Volume Immature 1.300 H Granulocytes % Neutrophils % 77.3 H Lymphocytes % 15.1 Monocytes % 5.8 Eosinophils % 0.1 Basophils % 0.4 Nucleated Red 0.0 Blood Cells % Immature 0.140 H Granulocytes # Neutrophils # 8.4 H Lymphocytes # 1.6 Monocytes # 0.6 Eosinophils # 0.0 Basophils # 0.0 Nucleated Red 0.0 Blood Cells # Sodium Level 136 Potassium Level 4.2 Chloride Level 107 Carbon Dioxide 23 Level Anion Gap 6 Blood Urea 31 H Nitrogen Creatinine 1.81 H Est Glomerular 29 L Filtrat Rate mL/min Glucose Level 155 # Calcium Level 8.5 Magnesium Level 2.5 Total Bilirubin 0.2 Direct Bilirubin 0.00 Indirect Bilirubin 0.2 Aspartate Amino 19 Transf (AST/SGOT) Alanine 9 L Aminotransferase ( ALT/SGPT) Alkaline 192 H Phosphatase Total Protein 6.1 Albumin 2.6 L Globulin 3.50 H Albumin/Globulin 0.74 Ratio Triglycerides Pending Level Cholesterol Level Pending LDL Cholesterol, Pending Calculated HDL Cholesterol 32 L Cholesterol/HDL Pending Ratio Thyroid Pending Stimulating Hormone (TSH) Medications Medication Current Medications Ondansetron HCl (Zofran Inj) 4 mg Q6H PRN IV NAUSEA AND/OR VOMITING Last administered on 07/16/18at 05:16; Admin Dose 4 MG; Start 07/15/18 at 22:30 Albuterol/ Ipratropium (Duoneb) 3 ml Q2H RESP THERAPY PRN NEB SHORTNESS OF BREATH; Start 07/15/18 at 22:30 Acetaminophen (Tylenol Liquid) 650 mg Q6H PRN PO PAIN LEVEL 1-3 OR FEVER Last administered on 07/16/18at 08:51; Admin Dose 650 MG; Start 07/15/18 at 22:30 Famotidine (Pepcid Iv) 20 mg DAILY IV Last administered on 07/16/18at 08:45; Admin Dose 20 MG; Start 07/16/18 at 09:00 Heparin Sodium (Porcine) (Heparin (5000 Units/1ml)) 5,000 unit Q12 SC Last administered on 07/16/18 08:45; Admin Dose 5,000 UNIT; Start 07/16/18 at 09:00 Insulin Human Regular 100 unit/ Sodium Chloride 100 ml @ 0 mls/hr PER PROTOCOL IV ; Start 07/15/18 at 23:00 Miscellaneous Information (* Miscellaneous Pharmacy Order) Treatment of Hypoglycemia: 1.BG 51... Per protocol XX ; Start 07/15/18 at 22:30 Dextrose (D50w Syringe) 25 ml Q15M PRN IV .DECREASED GLUCOSE; Start 07/15/18 at 22:30 Dextrose (D50w Syringe) 50 ml Q15M PRN IV .DECREASED GLUCOSE; Start 07/15/18 at 22:30 Potassium Chloride/Sodium Chloride 1,000 ml @ 100 mls/hr Q10H IV Last administered on 07/16/18at 03:00; Admin Dose 100 MLS/HR; Start 07/16/18 at 03:00 Diagnostic Test (Pha) (Accu-Chek) 1 ea Q1H XX Last administered on 07/16/18at 09:04; Admin Dose 1 EA; Start 07/16/18 at 09:00 LULY LERMA July 16, 2018 09:46
[2018-07-16] MEDS: INSULIN ASPART [NOVOLOG] 3 ML PEN SC SCH ×5 (11:30→20:37)
[2018-07-16] MEDS ORDERED: POTASSIUM PHOSPHATE 40 MEQ in SOD CHLORIDE 0.9% 250 ML IVPB ONE (11:30)
[2018-07-16] MEDS ORDERED: DEXTROSE 50% 50 ML SYRINGE IV PRN ×2 (12:30)
[2018-07-16] MEDS ORDERED: INSULIN GLARGINE [LANTus] (100 UNITS/ML) SYG SC ONE (12:30)
[2018-07-16] MEDS ORDERED: GLUCAGON 1 MG INJ IM PRN (12:30)
[2018-07-16] MEDS ORDERED: GLUCOSE GEL 15 GRAM TUBE BUCCAL PRN (12:30)
[2018-07-16] MEDS ORDERED: GLUCOSE GEL 15 GRAM TUBE PO PRN ×2 (12:30)
[2018-07-16] MEDS ORDERED: INSULIN GLARGINE [LANTus] (100 UNITS/ML) SYG SC SCH (20:00)
[2018-07-17] VITALS (26 sets, daily range): BP systolic 126–179; BP diastolic 55–77; PULSE 67–89; RESP 11–20
[2018-07-17] MEDS: ACCU-CHEK XX SCH (01:00)
[2018-07-17] MEDS: NS + KCL 20 MEQ 1,000 ML IV SCH (01:08)
[2018-07-17] MEDS: hydrALAzine 20 MG INJ IV PRN ×3 (03:39→20:46)
[2018-07-17] MEDS: ACETAMINOPHEN 650MG/20.3ML CUP PO PRN ×2 (07:23→13:37)
[2018-07-17] MEDS: INSULIN ASPART [NOVOLOG] 3 ML PEN SC SCH ×7 (07:58→20:59)
[2018-07-17] MEDS: FAMOTIDINE 20 MG INJ IV SCH (09:05)
[2018-07-17] MEDS: HEPARIN 5,000 UNIT/1 ML VIAL SC SCH ×2 (09:07→21:15)
--- NOTE | 2018-07-17 09:59 | PN ---
Date/Time of Note Date/Time of Note DATE: 07/17/18 TIME: 09:57 Assessment/Plan VTE Prophylaxis [place] [facility] [place] risk: 1 SCD applied [place] [facility] [place] No SCD contraindicated: other Pharmacological prophylaxis: heparin Lines/Catheters IV Catheter Type (from [facility], [place]): Peripheral IV Urinary Cath still in place: No Assessment/Plan Hospital Course S: Patient off insulin drip since yesterday. Sugars were stable overnight but elevated this morning around 300 range. Seen by renal team yesterday. O: VS- see below PE: Gen: No acute distress, lying in bed, daughter at bedside Head: Atraumatic Eyes: Normal Conjunctiva ENT: Normal External Ears, Nose and Mouth. Neck: Full range of motion. No meningismus. Resp: Clear to auscultation bilaterally Cardio: Regular rate and rhythm, no murmurs Abd: Soft, non tender, non distended. Normal bowel sounds Ext: No cyanosis, or edema Neuro: No focal deficits Assessment/Plan: 53-year-old female who presents with: 1. Hyperglycemia: Sugars improved now, patient was off home diabetes medication x6 months. A1c is pending, it is a send out but is likely very elevated. Patient apparently also has a history of legal blindness, likely secondary to uncontrolled diabetes and hypertension at home. Her acute presentation appears to be secondary to hyperosmolar nonketotic state. -Continue subcu insulin will increase aspart with meals to 10 units, increase Lantus to 30 units at night, and continue moderate insulin sliding scale -Still pending [employer] attendant eval-ordered yesterday -Continue IV fluids 2. Presumed acute on CKD -likely prerenal source. Creatinine still quite elevated -For now continue NS IVF -we will increase rate of this -Follow-up urine electrolytes further renal recommendations 3. Hypertensive emergency: BP better controlled now-Patient was initially on Cardene drip in the ER. -Adjust BP meds as needed 4. SIRS: Likely stress-induced -Monitor for now, continue IV fluids, follow-up any pending culture results 5. Hypothyroidism: Follow-up levels of TSH 6. Normocytic anemia -Follow-up FOBT and ferritin/iron to evaluate for GI bleed and iron deficiency Critical care time spent patient care today equals 50 minutes. Result Diagram: 07/17/1843907/17/18439 Results 24hrs Laboratory Tests Test 07/16/18 10:05 07/16/18 11:16 07/16/18 11:43 07/16/18 18:03 Bedside Glucose 155 132 121 180 Test 07/16/18 19:30 07/16/18 20:35 07/17/18 04:40 07/17/18 07:56 Urine Eosinophils % 0.0 Urine Random 56.77 Creatinine Urine Random Sodium 41 Urine Random 52.4 Potassium Urine 14.97 Protein/Creatinine Ratio Urine Total Protein Bedside Glucose 165 283 H White Blood Count 11.3 H Red Blood Count 3.72 L Hemoglobin 9.8 L Hematocrit 30.5 L Mean Corpuscular 82.0 Volume Mean Corpuscular 26.3 L Hemoglobin Mean Corpuscular 32.1 Hemoglobin Concent Red Cell 14.6 H Distribution Width Platelet Count 327 Mean Platelet 11.9 H Volume Immature 1.400 H Granulocytes % Neutrophils % 59.3 Lymphocytes % 28.7 Monocytes % 7.9 Eosinophils % 2.2 Basophils % 0.5 Nucleated Red Blood 0.0 Cells % Immature 0.160 H Granulocytes # Neutrophils # 6.7 Lymphocytes # 3.2 H Monocytes # 0.9 Eosinophils # 0.3 Basophils # 0.1 Nucleated Red Blood 0.0 Cells # Sodium Level 137 Potassium Level 4.8 Chloride Level 113 H Carbon Dioxide 20 L Level Anion Gap 4 L Blood Urea Nitrogen 28 H Creatinine 1.97 H Est Glomerular 27 L Filtrat Rate mL/min Glucose Level 289 #H Uric Acid 6.6 Calcium Level 8.0 L Phosphorus Level 6.0 #H Magnesium Level 2.2 Creatine Kinase 86 Test 07/17/18 09:36 Lab Scanned Report REFERENCE LAB Exam/Review of Systems Exam Vitals Vital Signs Date Temp Pulse Resp B/P (MAP) Pulse Ox O2 O2 Flow FiO2 Time Delivery Rate 07/17/18 83 16 138/55 100 Room Air 09:00 (82) 07/17/18 98.6 08:00 Intake and Output 07/16/18 07/16/18 07/17/18 1515:00 23:00 07:00 IntakeIntake Total 1298.81 ml 800 ml 695 ml OutputOutput Total 600 ml BalanceBalance 1298.81 ml 200 ml 695 ml Results Results 24hrs Laboratory Tests Test 07/16/18 10:05 07/16/18 11:16 07/16/18 11:43 07/16/18 18:03 Bedside Glucose 155 132 121 180 Test 07/16/18 19:30 07/16/18 20:35 07/17/18 04:40 07/17/18 07:56 Urine Eosinophils % 0.0 Urine Random 56.77 Creatinine Urine Random Sodium 41 Urine Random 52.4 Potassium Urine 14.97 Protein/Creatinine Ratio Urine Total Protein Bedside Glucose 165 283 H White Blood Count 11.3 H Red Blood Count 3.72 L Hemoglobin 9.8 L Hematocrit 30.5 L Mean Corpuscular 82.0 Volume Mean Corpuscular 26.3 L Hemoglobin Mean Corpuscular 32.1 Hemoglobin Concent Red Cell 14.6 H Distribution Width Platelet Count 327 Mean Platelet 11.9 H Volume Immature 1.400 H Granulocytes % Neutrophils % 59.3 Lymphocytes % 28.7 Monocytes % 7.9 Eosinophils % 2.2 Basophils % 0.5 Nucleated Red Blood 0.0 Cells % Immature 0.160 H Granulocytes # Neutrophils # 6.7 Lymphocytes # 3.2 H Monocytes # 0.9 Eosinophils # 0.3 Basophils # 0.1 Nucleated Red Blood 0.0 Cells # Sodium Level 137 Potassium Level 4.8 Chloride Level 113 H Carbon Dioxide 20 L Level Anion Gap 4 L Blood Urea Nitrogen 28 H Creatinine 1.97 H Est Glomerular 27 L Filtrat Rate mL/min Glucose Level 289 #H Uric Acid 6.6 Calcium Level 8.0 L Phosphorus Level 6.0 #H Magnesium Level 2.2 Creatine Kinase 86 Test 07/17/18 09:36 Lab Scanned Report REFERENCE LAB Medications Medication Current Medications Ondansetron HCl (Zofran Inj) 4 mg Q6H PRN IV NAUSEA AND/OR VOMITING Last administered on 07/16/18at 05:16; Admin Dose 4 MG; Start 07/15/18 at 22:30 Albuterol/ Ipratropium (Duoneb) 3 ml Q2H RESP THERAPY PRN NEB SHORTNESS OF BREATH; Start 07/15/18 at 22:30 Acetaminophen (Tylenol Liquid) 650 mg Q6H PRN PO PAIN LEVEL 1-3 OR FEVER Last administered on 07/17/18at 07:23; Admin Dose 650 MG; Start 07/15/18 at 22:30 Famotidine (Pepcid Iv) 20 mg DAILY IV Last administered on 07/17/18at 09:05; Admin Dose 20 MG; Start 07/16/18 at 09:00 Heparin Sodium (Porcine) (Heparin (5000 Units/1ml)) 5,000 unit Q12 SC Last administered on 07/17/18at 09:07; Admin Dose 5,000 UNIT; Start 07/16/18 at 09:00 Diagnostic Test (Pha) (Accu-Chek) 1 ea 02 XX ; Start 07/17/18 at 02:00 Insulin Aspart (Novolog Insulin Pen) NOVOLOG *MODERATE* ALGORITHM WITH MEALS BEDTIME SC Last administered on 07/17/18at 07:59; Admin Dose 8 UNIT; Start 07/16/18 at 11:30 Miscellaneous Information 1 ea NOTE XX ; Start 07/16/18 at 12:30 Glucose (Glutose) 15 gm Q15M PRN PO DECREASED GLUCOSE; Start 07/16/18 at 12:30 Glucose (Glutose) 22.5 gm Q15M PRN PO DECREASED GLUCOSE; Start 07/16/18 at 12:30 Dextrose (D50w Syringe) 25 ml Q15M PRN IV DECREASED GLUCOSE; Start 07/16/18 at 12:30 Dextrose (D50w Syringe) 50 ml Q15M PRN IV DECREASED GLUCOSE; Start 07/16/18 at 12:30 Glucagon (Glucagen) 1 mg Q15M PRN IM DECREASED GLUCOSE; Start 07/16/18 at 12:30 Glucose (Glutose) 15 gm Q15M PRN BUCCAL DECREASED GLUCOSE; Start 07/16/18 at 12:30 Hydralazine HCl (Apresoline) 10 mg Q6H PRN IV SBP>160 Last administered on 07/17/18at 03:39; Admin Dose 10 MG; Start 07/16/18 at 19:30 Sodium Chloride 1,000 ml @ 150 mls/hr Q6H40M IV ; Start 07/17/18 at 10:00 Insulin Aspart (Novolog Insulin Pen) 10 unit WITH MEALS SC ; Start 07/17/18 at 11:30; Status UNV Insulin Glargine (Lantus) 30 units DAILY@2000 SC ; Start 07/17/18 at 20:00; Status UNV LULY LERMA July 17, 2018 09:59
[2018-07-17] MEDS: SOD CHLORIDE 0.9% 1,000 ML IV SCH ×2 (10:01→18:31)
--- NOTE | 2018-07-17 12:53 | CONS ---
Assessment/Plan Assessment/Plan Assessment/Plan (Daily) 1. acute kidney injury on CKD III 2. HTN emergency 3. h/o possible CKD III due to DM nephropathy and HTN nephrosclerosis 4. H/O HTN 5. Anemia of CKD III with Iron deficiency Plan: BUN/Cr 28/1.97- decrease IVF rate to 75 cc/hr will start IV iron Ferrlecti x 5 days for iron deficiency Renal US showed R kidney 10.5c, left kidney 10.9c, 2.2 cm echogenic mass in the right kidney, suspicious for an angiomyolipoma will order Non contrast CT abdomen to assess for mass in R kidney will follow up Consultation Date/Type/Reason Admit Date/Time July 15, 2018 at 21:21 Initial Consult Date 07/16/18 Type of Consult NEPHROLOGY Requesting Provider: MAICO LUBIN Date/Time of Note DATE: 07/17/18 TIME: 12:52 24 HR Interval Summary Free Text/Dictation BUN/Cr 06/04.97- on IVF NS at 150 cc/hr Exam/Review of Systems Exam Vitals Vital Signs Date Temp Pulse Resp B/P (MAP) Pulse Ox O2 O2 Flow FiO2 Time Delivery Rate 07/17/18 75 12:00 07/17/18 18 145/55 96 Room Air 11:00 (85) 07/17/18 98.6 08:00 Intake and Output 07/16/18 07/16/18 07/17/18 1515:00 23:00 07:00 IntakeIntake Total 1298.81 ml 800 ml 695 ml OutputOutput Total 600 ml BalanceBalance 1298.81 ml 200 ml 695 ml Exam Constitutional: alert, awake, no acute distress Respiratory: clear to auscultation, normal air movement, diminished breath sounds Cardiovascular: regular rate and rhythm, nl pulses Gastrointestinal: soft, non-tender Musculoskeletal: nl extremities to inspection Extremities: normal pulses Neurological: FOOD EDITOR II-XII intact, nl mental status, nl speech, nl strength Results Result Diagram: 07/17/1843907/17/18439 Results 24hrs Laboratory Tests Test 07/16/18 18:03 07/16/18 19:30 07/16/18 20:35 07/17/18 04:40 Bedside Glucose 180 165 Urine Eosinophils 0.0 % Urine Random 56.77 Creatinine Urine Random 41 Sodium Urine Random 52.4 Potassium Urine 14.97 Protein/Creatinine Ratio Urine Total Protein White Blood Count 11.3 H Red Blood Count 3.72 L Hemoglobin 9.8 L Hematocrit 30.5 L Mean Corpuscular 82.0 Volume Mean Corpuscular 26.3 L Hemoglobin Mean Corpuscular 32.1 Hemoglobin Concent Red Cell 14.6 H Distribution Width Platelet Count 327 Mean Platelet 11.9 H Volume Immature 1.400 H Granulocytes % Neutrophils % 59.3 Lymphocytes % 28.7 Monocytes % 7.9 Eosinophils % 2.2 Basophils % 0.5 Nucleated Red 0.0 Blood Cells % Immature 0.160 H Granulocytes # Neutrophils # 6.7 Lymphocytes # 3.2 H Monocytes # 0.9 Eosinophils # 0.3 Basophils # 0.1 Nucleated Red 0.0 Blood Cells # Sodium Level 137 Potassium Level 4.8 Chloride Level 113 H Carbon Dioxide 20 L Level Anion Gap 4 L Blood Urea 28 H Nitrogen Creatinine 1.97 H Est Glomerular 27 L Filtrat Rate mL/min Glucose Level 289 #H Uric Acid 6.6 Calcium Level 8.0 L Phosphorus Level 6.0 #H Magnesium Level 2.2 Creatine Kinase 86 Test 07/17/18 07:56 07/17/18 09:36 07/17/18 11:55 Bedside Glucose 283 H 165 Lab Scanned Report REFERENCE LAB Medications Medication Current Medications Ondansetron HCl (Zofran Inj) 4 mg Q6H PRN IV NAUSEA AND/OR VOMITING Last administered on 07/16/18at 05:16; Admin Dose 4 MG; Start 07/15/18 at 22:30 Albuterol/ Ipratropium (Duoneb) 3 ml Q2H RESP THERAPY PRN NEB SHORTNESS OF BREATH; Start 07/15/18 at 22:30 Acetaminophen (Tylenol Liquid) 650 mg Q6H PRN PO PAIN LEVEL 1-3 OR FEVER Last administered on 07/17/18at 07:23; Admin Dose 650 MG; Start 07/15/18 at 22:30 Famotidine (Pepcid Iv) 20 mg DAILY IV Last administered on 07/17/18at 09:05; Admin Dose 20 MG; Start 07/16/18 at 09:00 Heparin Sodium (Porcine) (Heparin (5000 Units/1ml)) 5,000 unit Q12 SC Last administered on 07/17/18at 09:07; Admin Dose 5,000 UNIT; Start 07/16/18 at 09:00 Diagnostic Test (Pha) (Accu-Chek) 1 ea 02 XX ; Start 07/17/18 at 02:00 Insulin Aspart (Novolog Insulin Pen) NOVOLOG *MODERATE* ALGORITHM WITH MEALS BEDTIME SC Last administered on 07/17/18at 12:08; Admin Dose 2 UNIT; Start 07/16/18 at 11:30 Miscellaneous Information 1 ea NOTE XX ; Start 07/16/18 at 12:30 Glucose (Glutose) 15 gm Q15M PRN PO DECREASED GLUCOSE; Start 07/16/18 at 12:30 Glucose (Glutose) 22.5 gm Q15M PRN PO DECREASED GLUCOSE; Start 07/16/18 at 12:30 Dextrose (D50w Syringe) 25 ml Q15M PRN IV DECREASED GLUCOSE; Start 07/16/18 at 12:30 Dextrose (D50w Syringe) 50 ml Q15M PRN IV DECREASED GLUCOSE; Start 07/16/18 at 12:30 Glucagon (Glucagen) 1 mg Q15M PRN IM DECREASED GLUCOSE; Start 07/16/18 at 12:30 Glucose (Glutose) 15 gm Q15M PRN BUCCAL DECREASED GLUCOSE; Start 07/16/18 at 12:30 Hydralazine HCl (Apresoline) 10 mg Q6H PRN IV SBP>160 Last administered on 07/17/18at 03:39; Admin Dose 10 MG; Start 07/16/18 at 19:30 Sodium Chloride 1,000 ml @ 150 mls/hr Q6H40M IV Last administered on 07/17/18at 10:01; Admin Dose 150 MLS/HR; Start 07/17/18 at 10:00 Insulin Aspart (Novolog Insulin Pen) 10 unit WITH MEALS SC Last administered on 07/17/18at 12:07; Admin Dose 10 UNIT; Start 07/17/18 at 11:30 Insulin Glargine (Lantus) 30 units DAILY@2000 SC ; Start 07/17/18 at 20:00 GLORIA MANSFIELD MD July 17, 2018 12:53
[2018-07-17] MEDS: SOD FERRIC GLUC COMPLX 125 MG in SOD CHLORIDE 0.9% 100 ML IVPB SCH (17:38)
[2018-07-17] MEDS ORDERED: INSULIN GLARGINE [LANTus] (100 UNITS/ML) SYG SC SCH (20:00)
[2018-07-17] MEDS: INSULIN GLARGINE [LANTus] (100 UNITS/ML) SYG SC SCH (21:14)
[2018-07-18] VITALS (11 sets, daily range): BP systolic 135–205; BP diastolic 62–85; PULSE 78–97; RESP 18–22
[2018-07-18] MEDS: ACCU-CHEK XX SCH (02:31)
[2018-07-18] MEDS: ACETAMINOPHEN 650MG/20.3ML CUP PO PRN (04:13)
[2018-07-18] MEDS: hydrALAzine 20 MG INJ IV PRN (04:13)
[2018-07-18] MEDS: SOD CHLORIDE 0.9% 1,000 ML IV SCH ×2 (08:37→22:55)
--- NOTE | 2018-07-18 09:32 | PN ---
Date/Time of Note Date/Time of Note DATE: 07/18/18 TIME: 09:29 Assessment/Plan VTE Prophylaxis Risk score (from [facility] [place]0 risk: 2 SCD applied (from [facility] [place]): No SCD contraindicated: other Pharmacological prophylaxis: heparin Lines/Catheters IV Catheter Type (from [facility]): Peripheral IV Assessment/Plan Hospital Course S: Patient out of ICU now, sugars improved since yesterday. Seen by certified diabetes educator yesterday. Per nursing staff still having somewhat poor appetite. Seen by physical therapy and renal team yesterday. O: VS- see below PE: Gen: No acute distress, lying in bed, daughter at bedside Head: Atraumatic Eyes: Normal Conjunctiva ENT: Normal External Ears, Nose and Mouth. Neck: Full range of motion. No meningismus. Resp: Clear to auscultation bilaterally Cardio: Regular rate and rhythm, no murmurs Abd: Soft, non tender, non distended. Normal bowel sounds Ext: No cyanosis, or edema Neuro: No focal deficits Assessment/Plan: 53-year-old female who presents with: 1. Hyperglycemia: Sugars improved now, patient was off home diabetes medication x6 months. A1c is pending, it is a send out but is likely very elevated. Patient apparently also has a history of legal blindness, likely secondary to uncontrolled diabetes and hypertension at home. Her acute presentation appears to be secondary to hyperosmolar nonketotic state. -Continue subcu insulin aspart with meals 10 units, increase Lantus 30 units at night, and continue moderate insulin sliding scale -Follow-up accommodations from certified diabetes educator evmt -Continue IV fluids, continue PT and also needs front wheel walker for home use 2. Presumed acute on CKD -likely prerenal source. Creatinine still elevated -For now continue NS IVF -Follow-up urine electrolytes further renal recommendations 3. Hypertensive emergency: BP better controlled now-Patient was initially on Cardene drip in the ER. -Monitor, adjust BP meds as needed 4. SIRS: Likely stress-induced -Monitor for now, continue IV fluids, follow-up any pending culture results 5. Hypothyroidism: Follow-up levels of TSH 6. Normocytic anemia -Follow-up FOBT and ferritin/iron to evaluate for GI bleed and iron deficiency -Again will now get IV iron Result Diagram: 07/18/18 0623 07/18/18 0512 Results 24hrs Laboratory Tests Test 07/17/18 09:36 07/17/18 11:55 07/17/18 17:35 07/17/18 20:57 Lab Scanned Report REFERENCE LAB Bedside Glucose 165 151 136 Test 07/18/18 05:12 07/18/18 06:23 07/18/18 07:47 Sodium Level 137 Potassium Level 4.5 Chloride Level 115 H Carbon Dioxide 16 L Level Anion Gap 6 Blood Urea 29 H Nitrogen Creatinine 1.95 H Est Glomerular 27 L Filtrat Rate mL/min Glucose Level 262 H Calcium Level 8.4 Phosphorus Level 4.3 Magnesium Level 2.1 White Blood Count 12.1 H Red Blood Count 3.72 L Hemoglobin 9.9 L Hematocrit 30.5 L Mean Corpuscular 82.0 Volume Mean Corpuscular 26.6 L Hemoglobin Mean Corpuscular 32.5 Hemoglobin Concent Red Cell 14.8 H Distribution Width Platelet Count 344 Mean Platelet 11.8 H Volume Immature 1.600 H Granulocytes % Neutrophils % 69.8 Lymphocytes % 18.4 Monocytes % 7.9 Eosinophils % 1.7 Basophils % 0.6 Nucleated Red 0.0 Blood Cells % Immature 0.190 H Granulocytes # Neutrophils # 8.5 H Lymphocytes # 2.2 Monocytes # 1.0 H Eosinophils # 0.2 Basophils # 0.1 Nucleated Red 0.0 Blood Cells # Bedside Glucose 241 H Exam/Review of Systems Exam Vitals Vital Signs Date Temp Pulse Resp B/P (MAP) Pulse Ox O2 O2 Flow FiO2 Time Delivery Rate 07/18/18 85 08:00 07/18/18 98.0 22 142/65 96 Room Air 07:47 (90) Intake and Output 07/17/18 07/17/18 07/18/18 1515:00 23:00 07:00 IntakeIntake Total 980 ml 1050 ml 840 ml OutputOutput Total 600 ml BalanceBalance 380 ml 1050 ml 840 ml Results Results 24hrs Laboratory Tests Test 07/17/18 09:36 07/17/18 11:55 07/17/18 17:35 07/17/18 20:57 Lab Scanned Report REFERENCE LAB Bedside Glucose 165 151 136 Test 07/18/18 05:12 07/18/18 06:23 07/18/18 07:47 Sodium Level 137 Potassium Level 4.5 Chloride Level 115 H Carbon Dioxide 16 L Level Anion Gap 6 Blood Urea 29 H Nitrogen Creatinine 1.95 H Est Glomerular 27 L Filtrat Rate mL/min Glucose Level 262 H Calcium Level 8.4 Phosphorus Level 4.3 Magnesium Level 2.1 White Blood Count 12.1 H Red Blood Count 3.72 L Hemoglobin 9.9 L Hematocrit 30.5 L Mean Corpuscular 82.0 Volume Mean Corpuscular 26.6 L Hemoglobin Mean Corpuscular 32.5 Hemoglobin Concent Red Cell 14.8 H Distribution Width Platelet Count 344 Mean Platelet 11.8 H Volume Immature 1.600 H Granulocytes % Neutrophils % 69.8 Lymphocytes % 18.4 Monocytes % 7.9 Eosinophils % 1.7 Basophils % 0.6 Nucleated Red 0.0 Blood Cells % Immature 0.190 H Granulocytes # Neutrophils # 8.5 H Lymphocytes # 2.2 Monocytes # 1.0 H Eosinophils # 0.2 Basophils # 0.1 Nucleated Red 0.0 Blood Cells # Bedside Glucose 241 H Medications Medication Current Medications Ondansetron HCl (Zofran Inj) 4 mg Q6H PRN IV NAUSEA AND/OR VOMITING Last administered on 07/16/18at 05:16; Admin Dose 4 MG; Start 07/15/18 at 22:30 Albuterol/ Ipratropium (Duoneb) 3 ml Q2H RESP THERAPY PRN NEB SHORTNESS OF BREATH; Start 07/15/18 at 22:30 Acetaminophen (Tylenol Liquid) 650 mg Q6H PRN PO PAIN LEVEL 1-3 OR FEVER Last administered on 07/18/18at 04:13; Admin Dose 650 MG; Start 07/15/18 at 22:30 Heparin Sodium (Porcine) (Heparin (5000 Units/1ml)) 5,000 unit Q12 SC Last administered on 07/17/18at 21:15; Admin Dose 5,000 UNIT; Start 07/16/18 at 09:00 Diagnostic Test (Pha) (Accu-Chek) 1 ea 02 XX Last administered on 07/18/18at 02:31; Admin Dose 1 EA; Start 07/17/18 at 02:00 Insulin Aspart (Novolog Insulin Pen) NOVOLOG *MODERATE* ALGORITHM WITH MEALS BEDTIME SC Last administered on 07/17/18at 17:47; Admin Dose 2 UNIT; Start 07/16/18 at 11:30 Miscellaneous Information 1 ea NOTE XX ; Start 07/16/18 at 12:30 Glucose (Glutose) 15 gm Q15M PRN PO DECREASED GLUCOSE; Start 07/16/18 at 12:30 Glucose (Glutose) 22.5 gm Q15M PRN PO DECREASED GLUCOSE; Start 07/16/18 at 12:30 Dextrose (D50w Syringe) 25 ml Q15M PRN IV DECREASED GLUCOSE; Start 07/16/18 at 12:30 Dextrose (D50w Syringe) 50 ml Q15M PRN IV DECREASED GLUCOSE; Start 07/16/18 at 12:30 Glucagon (Glucagen) 1 mg Q15M PRN IM DECREASED GLUCOSE; Start 07/16/18 at 12:30 Glucose (Glutose) 15 gm Q15M PRN BUCCAL DECREASED GLUCOSE; Start 07/16/18 at 12:30 Hydralazine HCl (Apresoline) 10 mg Q6H PRN IV SBP>160 Last administered on 07/18/18at 04:13; Admin Dose 10 MG; Start 07/16/18 at 19:30 Sodium Chloride 1,000 ml @ 70 mls/hr [id number] IV Last administered on 07/17/18at 18:31; Admin Dose 70 MLS/HR; Start 07/17/18 at 10:00 Insulin Aspart (Novolog Insulin Pen) 10 unit WITH MEALS SC Last administered on 07/17/18at 17:48; Admin Dose 10 UNIT; Start 07/17/18 at 11:30 Insulin Glargine (Lantus) 30 units DAILY@2000 SC Last administered on 07/17/18at 21:14; Admin Dose 30 UNITS; Start 07/17/18 at 20:00 Ferric Sodium Gluconate Complex 125 mg/Sodium Chloride 100 ml @ 100 mls/hr DAILY@1300 IVPB Last administered on 07/17/18at 17:38; Admin Dose 100 MLS/HR; Start 07/17/18 at 17:00; Stop 07/19/18 at 13:59 Famotidine (Pepcid) 20 mg DAILY PO ; Start 07/18/18 at 09:00 LULY LERMA July 18, 2018 09:32
[2018-07-18] MEDS: FAMOTIDINE 20 MG TAB PO SCH (09:40)
[2018-07-18] MEDS: INSULIN ASPART [NOVOLOG] 3 ML PEN SC SCH ×7 (09:47→21:09)
[2018-07-18] MEDS: HEPARIN 5,000 UNIT/1 ML VIAL SC SCH ×2 (09:47→20:57)
[2018-07-18] MEDS: SOD FERRIC GLUC COMPLX 125 MG in SOD CHLORIDE 0.9% 100 ML IVPB SCH (13:19)
--- NOTE | 2018-07-18 13:19 | CONS ---
Assessment/Plan Assessment/Plan Assessment/Plan (Daily) 1. acute kidney injury on CKD III 2. HTN emergency 3. h/o possible CKD III due to DM nephropathy and HTN nephrosclerosis 4. H/O HTN 5. Anemia of CKD III with Iron deficiency 6. Right kidney angiomyolipoma, Left kidney non obstructing Calculus Plan: BUN/Cr 29/1.95- Pt becomign Hyperchloremic metabolic acidosis, will stop IVF NS, pt may be near her baseline Cr continue IV iron Ferrlecti x 5 days for iron deficiency Renal US showed R kidney 10.5c, left kidney 10.9c, CT showed 13 mm fat density lesion in the mid right kidney suggestive of angiomyolipoma. will follow up Consultation Date/Type/Reason Admit Date/Time July 15, 2018 at 21:21 Initial Consult Date 07/16/18 Type of Consult NEPHROLOGY Requesting Provider: MAICO LUBIN Date/Time of Note DATE: 07/18/18 TIME: 13:19 Exam/Review of Systems Exam Vitals Vital Signs Date Temp Pulse Resp B/P (MAP) Pulse Ox O2 O2 Flow FiO2 Time Delivery Rate 07/18/18 97.8 78 20 176/77 96 Room Air 12:06 (110) Intake and Output 07/17/18 07/17/18 07/18/18 1414:59 22:59 06:59 IntakeIntake Total 1080 ml 1050 ml 840 ml OutputOutput Total 600 ml BalanceBalance 480 ml 1050 ml 840 ml Results Result Diagram: 07/18/18 0623 07/18/18 0512 Results 24hrs Laboratory Tests Test 07/17/18 17:35 07/17/18 20:57 07/18/18 05:12 07/18/18 06:23 Bedside Glucose 151 136 Sodium Level 137 Potassium Level 4.5 Chloride Level 115 H Carbon Dioxide Level 16 L Anion Gap 6 Blood Urea Nitrogen 29 H Creatinine 1.95 H Est Glomerular 27 L Filtrat Rate mL/min Glucose Level 262 H Calcium Level 8.4 Phosphorus Level 4.3 Magnesium Level 2.1 White Blood Count 12.1 H Red Blood Count 3.72 L Hemoglobin 9.9 L Hematocrit 30.5 L Mean Corpuscular 82.0 Volume Mean Corpuscular 26.6 L Hemoglobin Mean Corpuscular 32.5 Hemoglobin Concent Red Cell 14.8 H Distribution Width Platelet Count 344 Mean Platelet Volume 11.8 H Immature 1.600 H Granulocytes % Neutrophils % 69.8 Lymphocytes % 18.4 Monocytes % 7.9 Eosinophils % 1.7 Basophils % 0.6 Nucleated Red Blood 0.0 Cells % Immature 0.190 H Granulocytes # Neutrophils # 8.5 H Lymphocytes # 2.2 Monocytes # 1.0 H Eosinophils # 0.2 Basophils # 0.1 Nucleated Red Blood 0.0 Cells # Test 07/18/18 07:47 07/18/18 12:04 Bedside Glucose 241 H 231 H Medications Medication Current Medications Ondansetron HCl (Zofran Inj) 4 mg Q6H PRN IV NAUSEA AND/OR VOMITING Last administered on 07/16/18at 05:16; Admin Dose 4 MG; Start 07/15/18 at 22:30 Albuterol/ Ipratropium (Duoneb) 3 ml Q2H RESP THERAPY PRN NEB SHORTNESS OF BREATH; Start 07/15/18 at 22:30 Acetaminophen (Tylenol Liquid) 650 mg Q6H PRN PO PAIN LEVEL 1-3 OR FEVER Last administered on 07/18/18at 04:13; Admin Dose 650 MG; Start 07/15/18 at 22:30 Heparin Sodium (Porcine) (Heparin (5000 Units/1ml)) 5,000 unit Q12 SC Last administered on 07/18/18at 09:47; Admin Dose 5,000 UNIT; Start 07/16/18 at 09:00 Diagnostic Test (Pha) (Accu-Chek) 1 ea 02 XX Last administered on 07/18/18at 02:31; Admin Dose 1 EA; Start 07/17/18 at 02:00 Insulin Aspart (Novolog Insulin Pen) NOVOLOG *MODERATE* ALGORITHM WITH MEALS BEDTIME SC Last administered on 07/18/18at 09:48; Admin Dose 6 UNIT; Start 07/16/18 at 11:30 Miscellaneous Information 1 ea NOTE XX ; Start 07/16/18 at 12:30 Glucose (Glutose) 15 gm Q15M PRN PO DECREASED GLUCOSE; Start 07/16/18 at 12:30 Glucose (Glutose) 22.5 gm Q15M PRN PO DECREASED GLUCOSE; Start 07/16/18 at 12:30 Dextrose (D50w Syringe) 25 ml Q15M PRN IV DECREASED GLUCOSE; Start 07/16/18 at 12:30 Dextrose (D50w Syringe) 50 ml Q15M PRN IV DECREASED GLUCOSE; Start 07/16/18 at 12:30 Glucagon (Glucagen) 1 mg Q15M PRN IM DECREASED GLUCOSE; Start 07/16/18 at 12:30 Glucose (Glutose) 15 gm Q15M PRN BUCCAL DECREASED GLUCOSE; Start 07/16/18 at 12:30 Hydralazine HCl (Apresoline) 10 mg Q6H PRN IV SBP>160 Last administered on 07/18/18at 04:13; Admin Dose 10 MG; Start 07/16/18 at 19:30 Sodium Chloride 1,000 ml @ 70 mls/hr [id number] IV Last administered on 07/17/18at 18:31; Admin Dose 70 MLS/HR; Start 07/17/18 at 10:00 Insulin Aspart (Novolog Insulin Pen) 10 unit WITH MEALS SC Last administered on 07/18/18at 09:47; Admin Dose 10 UNIT; Start 07/17/18 at 11:30 Insulin Glargine (Lantus) 30 units DAILY@2000 SC Last administered on 07/17/18at 21:14; Admin Dose 30 UNITS; Start 07/17/18 at 20:00 Ferric Sodium Gluconate Complex 125 mg/Sodium Chloride 100 ml @ 100 mls/hr DAILY@1300 IVPB Last administered on 07/17/18at 17:38; Admin Dose 100 MLS/HR; Start 07/17/18 at 17:00; Stop 07/19/18 at 13:59 Famotidine (Pepcid) 20 mg DAILY PO Last administered on 07/18/18at 09:40; Admin Dose 20 MG; Start 07/18/18 at 09:00 GLORIA MANSFIELD MD July 18, 2018 13:19
[2018-07-18] MEDS: INSULIN GLARGINE [LANTus] (100 UNITS/ML) SYG SC SCH (20:58)
[2018-07-19] VITALS (11 sets, daily range): BP systolic 130–182; BP diastolic 62–79; PULSE 73–87; RESP 19–20
[2018-07-19] MEDS: ACCU-CHEK XX SCH (01:48)
[2018-07-19] MEDS: SOD CHLORIDE 0.9% 1,000 ML IV SCH (05:32)
--- NOTE | 2018-07-19 08:05 | CONS ---
Assessment/Plan Assessment/Plan Assessment/Plan (Daily) 1. acute kidney injury on CKD III 2. HTN emergency 3. h/o possible CKD III due to DM nephropathy and HTN nephrosclerosis 4. H/O HTN 5. Anemia of CKD III with Iron deficiency 6. Right kidney angiomyolipoma, Left kidney non obstructing Calculus Plan: BUN/Cr 23/1.75- IVF stopped,, pt may be near her baseline Cr continue IV iron Ferrlecti x 5 days for iron deficiency Renal US showed R kidney 10.5c, left kidney 10.9c, CT showed 13 mm fat density lesion in the mid right kidney suggestive of angiomyolipoma. will follow up Consultation Date/Type/Reason Admit Date/Time July 15, 2018 at 21:21 Initial Consult Date 07/16/18 Type of Consult NEPHROLOGY Requesting Provider: MAICO LUBIN Date/Time of Note DATE: 07/19/18 TIME: 08:05 Exam/Review of Systems Exam Vitals Vital Signs Date Temp Pulse Resp B/P (MAP) Pulse Ox O2 O2 Flow FiO2 Time Delivery Rate 07/19/18 79 04:00 07/19/18 98.6 20 138/64 97 03:53 (88) 07/18/18 Room Air 16:11 Intake and Output 07/18/18 07/18/18 07/19/18 1515:00 23:00 07:00 IntakeIntake Total 1900 ml 1190 ml BalanceBalance 1900 ml 1190 ml Exam Constitutional: alert, awake, no acute distress Respiratory: clear to auscultation, normal air movement, diminished breath sounds Cardiovascular: regular rate and rhythm, nl pulses Gastrointestinal: soft, non-tender Musculoskeletal: nl extremities to inspection Extremities: normal pulses Neurological: MICA SPLITTER II-XII intact, nl mental status, nl speech, nl strength Results Result Diagram: 07/19/18 0515 07/19/18 0515 Results 24hrs Laboratory Tests Test 07/18/18 12:04 07/18/18 18:16 07/18/18 21:00 07/19/18 01:39 Bedside Glucose 231 H 91 252 H 159 Test 07/19/18 05:15 White Blood Count 10.3 Red Blood Count 3.46 L Hemoglobin 9.1 L Hematocrit 29.0 L Mean Corpuscular 83.8 Volume Mean Corpuscular 26.3 L Hemoglobin Mean Corpuscular 31.4 L Hemoglobin Concent Red Cell 14.8 H Distribution Width Platelet Count 339 Mean Platelet Volume 12.0 H Immature 1.200 H Granulocytes % Neutrophils % 52.6 Lymphocytes % 33.4 Monocytes % 9.5 Eosinophils % 2.7 Basophils % 0.6 Nucleated Red Blood 0.0 Cells % Immature 0.120 H Granulocytes # Neutrophils # 5.5 Lymphocytes # 3.5 H Monocytes # 1.0 H Eosinophils # 0.3 Basophils # 0.1 Nucleated Red Blood 0.0 Cells # Sodium Level 141 Potassium Level 3.9 Chloride Level 118 H Carbon Dioxide Level 19 L Anion Gap 4 L Blood Urea Nitrogen 23 H Creatinine 1.75 H Est Glomerular 30 L Filtrat Rate mL/min Glucose Level 74 # Calcium Level 8.0 L Medications Medication Current Medications Ondansetron HCl (Zofran Inj) 4 mg Q6H PRN IV NAUSEA AND/OR VOMITING Last administered on 07/16/18 05:16; Admin Dose 4 MG; Start 07/15/18 at 22:30 Albuterol/ Ipratropium (Duoneb) 3 ml Q2H RESP THERAPY PRN NEB SHORTNESS OF BREATH; Start 07/15/18 at 22:30 Acetaminophen (Tylenol Liquid) 650 mg Q6H PRN PO PAIN LEVEL 1-3 OR FEVER Last administered on 07/18/18 04:13; Admin Dose 650 MG; Start 07/15/18 at 22:30 Heparin Sodium (Porcine) (Heparin (5000 Units/1ml)) 5,000 unit Q12 SC Last administered on 07/18/18at 20:57; Admin Dose 5,000 UNIT; Start 07/16/18 at 09:00 Diagnostic Test (Pha) (Accu-Chek) 1 ea 02 XX Last administered on 07/19/18at 01:48; Admin Dose 1 EA; Start 07/17/18 at 02:00 Insulin Aspart (Novolog Insulin Pen) NOVOLOG *MODERATE* ALGORITHM WITH MEALS BEDTIME SC Last administered on 07/18/18 21:09; Admin Dose 2 UNIT; Start 07/16/18 at 11:30 Miscellaneous Information 1 ea NOTE XX ; Start 07/16/18 at 12:30 Glucose (Glutose) 15 gm Q15M PRN PO DECREASED GLUCOSE; Start 07/16/18 at 12:30 Glucose (Glutose) 22.5 gm Q15M PRN PO DECREASED GLUCOSE; Start 07/16/18 at 12:30 Dextrose (D50w Syringe) 25 ml Q15M PRN IV DECREASED GLUCOSE; Start 07/16/18 at 12:30 Dextrose (D50w Syringe) 50 ml Q15M PRN IV DECREASED GLUCOSE; Start 07/16/18 at 12:30 Glucagon (Glucagen) 1 mg Q15M PRN IM DECREASED GLUCOSE; Start 07/16/18 at 12:30 Glucose (Glutose) 15 gm Q15M PRN BUCCAL DECREASED GLUCOSE; Start 07/16/18 at 12:30 Hydralazine HCl (Apresoline) 10 mg Q6H PRN IV SBP>160 Last administered on 07/18/18at 04:13; Admin Dose 10 MG; Start 07/16/18 at 19:30 Insulin Aspart (Novolog Insulin Pen) 10 unit WITH MEALS SC Last administered on 07/18/18at 14:12; Admin Dose 10 UNIT; Start 07/17/18 at 11:30 Insulin Glargine (Lantus) 30 units DAILY@2000 SC Last administered on 07/18/18at 20:58; Admin Dose 30 UNITS; Start 07/17/18 at 20:00 Ferric Sodium Gluconate Complex 125 mg/Sodium Chloride 100 ml @ 100 mls/hr DAILY@1300 IVPB Last administered on 07/18/18at 13:19; Admin Dose 100 MLS/HR; Start 07/17/18 at 17:00; Stop 07/19/18 at 13:59 Famotidine (Pepcid) 20 mg DAILY PO Last administered on 07/18/18at 09:40; Admin Dose 20 MG; Start 07/18/18 at 09:00 GLORIA MANSFIELD MD July 19, 2018 08:05
[2018-07-19] MEDS: INSULIN ASPART [NOVOLOG] 3 ML PEN SC SCH ×7 (08:09→20:07)
[2018-07-19] MEDS: FAMOTIDINE 20 MG TAB PO SCH (08:11)
[2018-07-19] MEDS: HEPARIN 5,000 UNIT/1 ML VIAL SC SCH ×2 (08:13→20:23)
[2018-07-19] MEDS: hydrALAzine 20 MG INJ IV PRN ×2 (08:16→15:36)
[2018-07-19] MEDS: ACETAMINOPHEN 650MG/20.3ML CUP PO PRN (12:59)
--- NOTE | 2018-07-19 14:36 | PN ---
Date/Time of Note Date/Time of Note DATE: 07/19/18 TIME: 14:35 Assessment/Plan VTE Prophylaxis Risk score (from N[facility])>0 risk: 2 [place]CD applied [place]from [facility] [place] No SCD contraindicated: other Pharmacological prophylaxis: heparin Lines/Catheters IV [facility] [place] [facility] Assessment/Plan Hospital Course S: Patient had no acute events overnight, seen by renal team yesterday. O: VS- see below PE: Gen: No acute distress, lying in bed, daughter at bedside Head: Atraumatic Eyes: Normal Conjunctiva ENT: Normal External Ears, Nose and Mouth. Neck: Full range of motion. No meningismus. Resp: Clear to auscultation bilaterally Cardio: Regular rate and rhythm, no murmurs Abd: Soft, non tender, non distended. Normal bowel sounds Ext: No cyanosis, or edema Neuro: No focal deficits Assessment/Plan: 53-year-old female who presents with: 1. Hyperglycemia: Sugars improved now, patient was off home diabetes medication x6 months. A1c is pending, it is a send out but is likely very elevated. Patient apparently also has a history of legal blindness, likely secondary to uncontrolled diabetes and hypertension at home. Her acute presentation appears to be secondary to hyperosmolar nonketotic state. -Given slightly elevated blood sugars, will increase the dose of subcu insulin aspart with meals to 12 units, and increase Lantus to 35 units at night, and continue moderate insulin sliding scale -Follow-up accommodations from certified breastfeeding educator kishore -Continue IV fluids, continue PT, case management has set a front wheel walker for home use as well 2. Presumed acute on CKD -likely prerenal source. Creatinine still elevated, but slowly trending down, Patient may be at her or near her baseline creatinine levels - although patient was developing some mild hyperchloremic metabolic acidosis yesterday and fluids were stopped. -For now monitor BUN/creatinine levels -Follow-up urine electrolytes and further renal recommendations 3. Hypertensive emergency: BP better controlled now-Patient was initially on Cardene drip in the ER. -Monitor, adjust BP meds as needed 4. SIRS: Likely stress-induced -Monitor for now, continue IV fluids, follow-up any pending culture results 5. Hypothyroidism: Follow-up levels of TSH 6. Normocytic anemia -Follow-up FOBT and ferritin/iron to evaluate for GI bleed and iron deficiency -IV iron Dispo: Likely home in 24 hours if her sugars are better improved, and kidney function has improved. Result Diagram: 07/19/18 0515 07/19/18 0515 Results 24hrs Laboratory Tests Test 07/18/18 18:16 07/18/18 21:00 07/19/18 01:39 07/19/18 05:15 Bedside Glucose 91 252 H 159 White Blood Count 10.3 Red Blood Count 3.46 L Hemoglobin 9.1 L Hematocrit 29.0 L Mean Corpuscular 83.8 Volume Mean Corpuscular 26.3 L Hemoglobin Mean Corpuscular 31.4 L Hemoglobin Concent Red Cell 14.8 H Distribution Width Platelet Count 339 Mean Platelet Volume 12.0 H Immature 1.200 H Granulocytes % Neutrophils % 52.6 Lymphocytes % 33.4 Monocytes % 9.5 Eosinophils % 2.7 Basophils % 0.6 Nucleated Red Blood 0.0 Cells % Immature 0.120 H Granulocytes # Neutrophils # 5.5 Lymphocytes # 3.5 H Monocytes # 1.0 H Eosinophils # 0.3 Basophils # 0.1 Nucleated Red Blood 0.0 Cells # Sodium Level 141 Potassium Level 3.9 Chloride Level 118 H Carbon Dioxide Level 19 L Anion Gap 4 L Blood Urea Nitrogen 23 H Creatinine 1.75 H Est Glomerular 30 L Filtrat Rate mL/min Glucose Level 74 # Calcium Level 8.0 L Test 07/19/18 08:07 07/19/18 11:57 Bedside Glucose 192 150 Exam/Review of Systems Exam Vitals Vital Signs Date Temp Pulse Resp B/P (MAP) Pulse Ox O2 O2 Flow FiO2 Time Delivery Rate 07/19/18 87 12:00 07/19/18 98.6 20 148/66 99 Room Air 11:06 (93) Intake and Output 07/18/18 07/18/18 07/19/18 1515:00 23:00 07:00 IntakeIntake Total 1900 ml 1190 ml BalanceBalance 1900 ml 1190 ml Results Results 24hrs Laboratory Tests Test 07/18/18 18:16 07/18/18 21:00 07/19/18 01:39 07/19/18 05:15 Bedside Glucose 91 252 H 159 White Blood Count 10.3 Red Blood Count 3.46 L Hemoglobin 9.1 L Hematocrit 29.0 L Mean Corpuscular 83.8 Volume Mean Corpuscular 26.3 L Hemoglobin Mean Corpuscular 31.4 L Hemoglobin Concent Red Cell 14.8 H Distribution Width Platelet Count 339 Mean Platelet Volume 12.0 H Immature 1.200 H Granulocytes % Neutrophils % 52.6 Lymphocytes % 33.4 Monocytes % 9.5 Eosinophils % 2.7 Basophils % 0.6 Nucleated Red Blood 0.0 Cells % Immature 0.120 H Granulocytes # Neutrophils # 5.5 Lymphocytes # 3.5 H Monocytes # 1.0 H Eosinophils # 0.3 Basophils # 0.1 Nucleated Red Blood 0.0 Cells # Sodium Level 141 Potassium Level 3.9 Chloride Level 118 H Carbon Dioxide Level 19 L Anion Gap 4 L Blood Urea Nitrogen 23 H Creatinine 1.75 H Est Glomerular 30 L Filtrat Rate mL/min Glucose Level 74 # Calcium Level 8.0 L Test 07/19/18 08:07 07/19/18 11:57 Bedside Glucose 192 150 Medications Medication Current Medications Ondansetron HCl (Zofran Inj) 4 mg Q6H PRN IV NAUSEA AND/OR VOMITING Last administered on 07/16/18at 05:16; Admin Dose 4 MG; Start 07/15/18 at 22:30 Albuterol/ Ipratropium (Duoneb) 3 ml Q2H RESP THERAPY PRN NEB SHORTNESS OF BREATH; Start 07/15/18 at 22:30 Acetaminophen (Tylenol Liquid) 650 mg Q6H PRN PO PAIN LEVEL 1-3 OR FEVER Last administered on 07/19/18at 12:59; Admin Dose 650 MG; Start 07/15/18 at 22:30 Heparin Sodium (Porcine) (Heparin (5000 Units/1ml)) 5,000 unit Q12 SC Last administered on 07/19/18at 08:13; Admin Dose 5,000 UNIT; Start 07/16/18 at 09:00 Diagnostic Test (Pha) (Accu-Chek) 1 ea 02 XX Last administered on 07/19/18at 01:48; Admin Dose 1 EA; Start 07/17/18 at 02:00 Insulin Aspart (Novolog Insulin Pen) NOVOLOG *MODERATE* ALGORITHM WITH MEALS BEDTIME SC Last administered on 07/19/18at 12:00; Admin Dose 2 UNIT; Start 07/16/18 at 11:30 Miscellaneous Information 1 ea NOTE XX ; Start 07/16/18 at 12:30 Glucose (Glutose) 15 gm Q15M PRN PO DECREASED GLUCOSE; Start 07/16/18 at 12:30 Glucose (Glutose) 22.5 gm Q15M PRN PO DECREASED GLUCOSE; Start 07/16/18 at 12:30 Dextrose (D50w Syringe) 25 ml Q15M PRN IV DECREASED GLUCOSE; Start 07/16/18 at 12:30 Dextrose (D50w Syringe) 50 ml Q15M PRN IV DECREASED GLUCOSE; Start 07/16/18 at 12:30 Glucagon (Glucagen) 1 mg Q15M PRN IM DECREASED GLUCOSE; Start 07/16/18 at 12:30 Glucose (Glutose) 15 gm Q15M PRN BUCCAL DECREASED GLUCOSE; Start 07/16/18 at 12:30 Hydralazine HCl (Apresoline) 10 mg Q6H PRN IV SBP>160 Last administered on 07/19/18at 08:16; Admin Dose 10 MG; Start 07/16/18 at 19:30 Famotidine (Pepcid) 20 mg DAILY PO Last administered on 07/19/18at 08:11; Admin Dose 20 MG; Start 07/18/18 at 09:00 Insulin Aspart (Novolog Insulin Pen) 12 unit WITH MEALS SC Last administered on 07/19/18at 11:59; Admin Dose 12 UNIT; Start 07/19/18 at 12:00 Insulin Glargine (Lantus) 35 units DAILY@2000 SC ; Start 07/19/18 at 20:00 LULY LERMA July 19, 2018 14:36
[2018-07-19] MEDS: SOD FERRIC GLUC COMPLX 125 MG in SOD CHLORIDE 0.9% 100 ML IVPB SCH (14:57)
[2018-07-19] MEDS ORDERED: ENALAPRILAT 1.25 MG INJ IV PRN (18:00)
[2018-07-19] MEDS: AMLODIPINE 5 MG TAB PO SCH (18:09)
[2018-07-19] MEDS ORDERED: hydrALAzine 20 MG INJ IV PRN (19:30)
[2018-07-19] MEDS: INSULIN GLARGINE [LANTus] (100 UNITS/ML) SYG SC SCH (20:09)
[2018-07-20] MEDS: ACCU-CHEK XX SCH (01:01)
[2018-07-20 02:00] VITALS: BP 151/69; PULSE 74
[2018-07-20 07:22] VITALS: BP 177/75; PULSE 76; RESP 16
[2018-07-20] MEDS: INSULIN ASPART [NOVOLOG] 3 ML PEN SC SCH ×7 (08:00→20:35)
[2018-07-20] MEDS: FAMOTIDINE 20 MG TAB PO SCH (08:17)
[2018-07-20] MEDS: AMLODIPINE 5 MG TAB PO SCH (08:18)
[2018-07-20] MEDS: HEPARIN 5,000 UNIT/1 ML VIAL SC SCH ×2 (08:19→20:52)
--- NOTE | 2018-07-20 10:17 | CONS ---
Assessment/Plan Assessment/Plan Assessment/Plan (Daily) 1. acute kidney injury on CKD III 2. HTN emergency 3. h/o possible CKD III due to DM nephropathy and HTN nephrosclerosis 4. H/O HTN 5. Anemia of CKD III with Iron deficiency 6. Right kidney angiomyolipoma, Left kidney non obstructing Calculus Plan: BUN/Cr 25/1.81, HCo3 19- will start bicitra 30ml PO BID ,, pt may be near her baseline Cr continue IV iron Ferrlecti x 5 days for iron deficiency Renal US showed R kidney 10.5c, left kidney 10.9c, CT showed 13 mm fat density lesion in the mid right kidney suggestive of angiomyolipoma. Follow up with me in clinic in 1-2 week upon discharge( please provide my office address and Phone number) will follow up Consultation Date/Type/Reason Admit Date/Time July 15, 2018 at 21:21 Initial Consult Date 07/16/18 Type of Consult NEPHROLOGY Requesting Provider: MAICO LUBIN Date/Time of Note DATE: 07/20/18 TIME: 10:17 Exam/Review of Systems Exam Vitals Vital Signs Date Temp Pulse Resp B/P (MAP) Pulse Ox O2 O2 Flow FiO2 Time Delivery Rate 07/20/18 98.5 76 16 177/75 98 07:22 (109) 07/20/18 Room Air 02:00 Exam Constitutional: alert, awake, no acute distress Respiratory: clear to auscultation, normal air movement, diminished breath sounds Cardiovascular: regular rate and rhythm, nl pulses Gastrointestinal: soft, non-tender Musculoskeletal: nl extremities to inspection Extremities: normal pulses Neurological: LEGAL BILLER II-XII intact, nl mental status, nl speech, nl strength Results Result Diagram: 07/20/18 0429 07/20/18 0429 Results 24hrs Laboratory Tests Test 07/19/18 11:57 07/19/18 17:24 07/19/18 20:06 07/20/18 04:29 Bedside Glucose 150 104 80 White Blood Count 10.5 Red Blood Count 3.44 L Hemoglobin 9.2 L Hematocrit 29.0 L Mean Corpuscular 84.3 Volume Mean Corpuscular 26.7 L Hemoglobin Mean Corpuscular 31.7 L Hemoglobin Concent Red Cell 15.0 H Distribution Width Platelet Count 364 Mean Platelet Volume 11.8 H Immature 2.000 H Granulocytes % Neutrophils % 59.0 Lymphocytes % 26.9 Monocytes % 9.2 Eosinophils % 2.3 Basophils % 0.6 Nucleated Red Blood 0.0 Cells % Immature 0.210 H Granulocytes # Neutrophils # 6.2 Lymphocytes # 2.8 Monocytes # 1.0 H Eosinophils # 0.2 Basophils # 0.1 Nucleated Red Blood 0.0 Cells # Sodium Level 140 Potassium Level 4.2 Chloride Level 116 H Carbon Dioxide Level 19 L Anion Gap 5 Blood Urea Nitrogen 25 H Creatinine 1.81 H Est Glomerular 29 L Filtrat Rate mL/min Glucose Level 113 Calcium Level 8.3 L Phosphorus Level 4.7 Magnesium Level 2.1 Test 07/20/18 08:17 Bedside Glucose 85 Medications Medication Current Medications Ondansetron HCl (Zofran Inj) 4 mg Q6H PRN IV NAUSEA AND/OR VOMITING Last administered on 07/16/18at 05:16; Admin Dose 4 MG; Start 07/15/18 at 22:30 Albuterol/ Ipratropium (Duoneb) 3 ml Q2H RESP THERAPY PRN NEB SHORTNESS OF BREATH; Start 07/15/18 at 22:30 Acetaminophen (Tylenol Liquid) 650 mg Q6H PRN PO PAIN LEVEL 1-3 OR FEVER Last administered on 07/19/18at 12:59; Admin Dose 650 MG; Start 07/15/18 at 22:30 Heparin Sodium (Porcine) (Heparin (5000 Units/1ml)) 5,000 unit Q12 SC Last administered on 07/20/18at 08:19; Admin Dose 5,000 UNIT; Start 07/16/18 at 09:00 Diagnostic Test (Pha) (Accu-Chek) 1 ea 02 XX Last administered on 07/19/18at 01:48; Admin Dose 1 EA; Start 07/17/18 at 02:00 Insulin Aspart (Novolog Insulin Pen) NOVOLOG *MODERATE* ALGORITHM WITH MEALS BEDTIME SC Last administered on 07/19/18at 12:00; Admin Dose 2 UNIT; Start 07/16/18 at 11:30 Miscellaneous Information 1 ea NOTE XX ; Start 07/16/18 at 12:30 Glucose (Glutose) 15 gm Q15M PRN PO DECREASED GLUCOSE; Start 07/16/18 at 12:30 Glucose (Glutose) 22.5 gm Q15M PRN PO DECREASED GLUCOSE; Start 07/16/18 at 12:30 Dextrose (D50w Syringe) 25 ml Q15M PRN IV DECREASED GLUCOSE; Start 07/16/18 at 12:30 Dextrose (D50w Syringe) 50 ml Q15M PRN IV DECREASED GLUCOSE; Start 07/16/18 at 12:30 Glucagon (Glucagen) 1 mg Q15M PRN IM DECREASED GLUCOSE; Start 07/16/18 at 12:30 Glucose (Glutose) 15 gm Q15M PRN BUCCAL DECREASED GLUCOSE; Start 07/16/18 at 12:30 Famotidine (Pepcid) 20 mg DAILY PO Last administered on 07/20/18at 08:17; Admin Dose 20 MG; Start 07/18/18 at 09:00 Insulin Aspart (Novolog Insulin Pen) 12 unit WITH MEALS SC Last administered on 07/20/18 08:19; Admin Dose 12 UNIT; Start 07/19/18 at 12:00 Insulin Glargine (Lantus) 35 units DAILY@2000 SC Last administered on 07/19/18at 20:09; Admin Dose 35 UNITS; Start 07/19/18 at 20:00 Hydralazine HCl (Apresoline) 10 mg Q4H PRN IV SBP>160; Start 07/19/18 at 19:30 Amlodipine Besylate (Norvasc) 5 mg DAILY PO Last administered on 07/20/18at 08:18; Admin Dose 5 MG; Start 07/19/18 at 18:00 Enalaprilat (Vasotec Iv) 1.25 mg Q4H PRN IV ELEVATED BLOOD PRESSURE Last administered on 07/19/18at 18:10; Admin Dose 1.25 MG; Start 07/19/18 at 18:00 GLORIA MANSFIELD MD July 20, 2018 10:17
[2018-07-20 14:38] VITALS: BP 169/70; PULSE 80; RESP 16
[2018-07-20] MEDS: HYDROCHLOROTHIAZIDE 25 MG TAB PO SCH (15:28)
--- NOTE | 2018-07-20 17:56 | PN ---
Date/Time of Note Date/Time of Note DATE: 07/20/18 TIME: 17:45 Assessment/Plan VTE Prophylaxis Risk score (from Nsg)>0 risk: 1 SCD applied (from Nsg): Yes Pharmacological prophylaxis: NA/contraindicated Pharm contraindication: low risk/ambulating Lines/Catheters IV Catheter Type (from Nrsg): Saline Lock Urinary Cath still in place: No Assessment/Plan Assessment/Plan 53 yo blind woman with diabetes and hypertension presents hypertensive and hyperglycemic. # Hyperglycemia: # Diabetes - Patient was off home diabetes meds for 1 month. She reports feeling nauseated, this may have been due to metformin. - Seen by consumer educator. Will tentatively plan to discharge with insulin pen and speaking glucometer. # Presumed acute on CKD - Probably from uncontrolled hypertension and hyperglycemia. - Cr appears stable now. # Hypertension - Patient was only started on norvasc 5 since admission, no other oral BP meds. The reason for this is unclear. - Blood pressure still very uncontrolled. - I'll restart her home HCTZ and increase to norvasc 10 for now. # Hypothyroidism: Mildly elevated TSH. Subclinical. No need to start synthroid yet. # Normocytic anemia - TIBC low; probably anemia of chronic disease. Result Diagram: 07/20/1842807/20/18428 Subjective 24 Hr Interval Summary Free Text/Dictation No acute overnight events. Patient doing well. Exam/Review of Systems Exam Vitals Vital Signs Date Temp Pulse Resp B/P (MAP) Pulse Ox O2 O2 Flow FiO2 Time Delivery Rate 07/20/18 97.2 80 16 169/70 99 14:38 (103) 07/20/18 Room Air 02:00 Exam Gen: No acute distress, lying in bed. Head: Atraumatic Eyes: Normal Conjunctiva ENT: Normal External Ears, Nose and Mouth. Neck: Full range of motion. No meningismus. Resp: Clear to auscultation bilaterally Cardio: Regular rate and rhythm, no murmurs Abd: Soft, non tender, non distended. Normal bowel sounds Ext: No cyanosis, or edema Results Results 24hrs Laboratory Tests Test 07/19/18 20:06 07/20/18 04:29 07/20/18 08:17 07/20/18 12:51 Bedside Glucose 80 85 106 White Blood Count 10.5 Red Blood Count 3.44 L Hemoglobin 9.2 L Hematocrit 29.0 L Mean Corpuscular 84.3 Volume Mean Corpuscular 26.7 L Hemoglobin Mean Corpuscular 31.7 L Hemoglobin Concent Red Cell 15.0 H Distribution Width Platelet Count 364 Mean Platelet Volume 11.8 H Immature 2.000 H Granulocytes % Neutrophils % 59.0 Lymphocytes % 26.9 Monocytes % 9.2 Eosinophils % 2.3 Basophils % 0.6 Nucleated Red Blood 0.0 Cells % Immature 0.210 H Granulocytes # Neutrophils # 6.2 Lymphocytes # 2.8 Monocytes # 1.0 H Eosinophils # 0.2 Basophils # 0.1 Nucleated Red Blood 0.0 Cells # Sodium Level 140 Potassium Level 4.2 Chloride Level 116 H Carbon Dioxide Level 19 L Anion Gap 5 Blood Urea Nitrogen 25 H Creatinine 1.81 H Est Glomerular 29 L Filtrat Rate mL/min Glucose Level 113 Calcium Level 8.3 L Phosphorus Level 4.7 Magnesium Level 2.1 Medications Medication Current Medications Ondansetron HCl (Zofran Inj) 4 mg Q6H PRN IV NAUSEA AND/OR VOMITING Last administered on 07/16/18at 05:16; Admin Dose 4 MG; Start 07/15/18 at 22:30 Albuterol/ Ipratropium (Duoneb) 3 ml Q2H RESP THERAPY PRN NEB SHORTNESS OF [place] TH; Start 07/15/18 at 22:30 Acetaminophen (Tylenol Liquid) 650 mg Q6H PRN PO PAIN LEVEL 1-3 OR FEVER Last administered on 07/19/18at 12:59; Admin Dose 650 MG; Start 07/15/18 at 22:30 Heparin Sodium (Porcine) (Heparin (5000 Units/1ml)) 5,000 unit Q12 SC Last administered on 07/20/18at 08:19; Admin Dose 5,000 UNIT; Start 07/16/18 at 09:00 Diagnostic Test (Pha) (Accu-Chek) 1 ea 02 XX Last administered on 07/19/18at 01:48; Admin Dose 1 EA; Start 07/17/18 at 02:00 Insulin Aspart (Novolog Insulin Pen) NOVOLOG *MODERATE* ALGORITHM WITH MEALS BEDTIME SC Last administered on 07/19/18at 12:00; Admin Dose 2 UNIT; Start 07/16/18 at 11:30 Miscellaneous Information 1 ea NOTE XX ; Start 07/16/18 at 12:30 Glucose (Glutose) 15 gm Q15M PRN PO DECREASED GLUCOSE; Start 07/16/18 at 12:30 Glucose (Glutose) 22.5 gm Q15M PRN PO DECREASED GLUCOSE; Start 07/16/18 at 12:30 Dextrose (D50w Syringe) 25 ml Q15M PRN IV DECREASED GLUCOSE; Start 07/16/18 at 12:30 Dextrose (D50w Syringe) 50 ml Q15M PRN IV DECREASED GLUCOSE; Start 07/16/18 at 12:30 Glucagon (Glucagen) 1 mg Q15M PRN IM DECREASED GLUCOSE; Start 07/16/18 at 12:30 Glucose (Glutose) 15 gm Q15M PRN BUCCAL DECREASED GLUCOSE; Start 07/16/18 at 12:30 Famotidine (Pepcid) 20 mg DAILY PO Last administered on 07/20/18at 08:17; Admin Dose 20 MG; Start 07/18/18 at 09:00 Insulin Aspart (Novolog Insulin Pen) 12 unit WITH MEALS SC Last administered on 07/20/18at 17:35; Admin Dose 12 UNIT; Start 07/19/18 at 12:00 Insulin Glargine (Lantus) 35 units DAILY@2000 SC Last administered on 07/19/18at 20:09; Admin Dose 35 UNITS; Start 07/19/18 at 20:00 Hydralazine HCl (Apresoline) 10 mg Q4H PRN IV SBP>160; Start 07/19/18 at 19:30 Enalaprilat (Vasotec Iv) 1.25 mg Q4H PRN IV ELEVATED BLOOD PRESSURE Last administered on 07/19/18at 18:10; Admin Dose 1.25 MG; Start 07/19/18 at 18:00 Hydrochlorothiazide (Hydrochlorothiazide) 25 mg DAILY PO Last administered on 07/20/18at 15:28; Admin Dose 25 MG; Start 07/20/18 at 15:00 Amlodipine Besylate (Norvasc) 10 mg DAILY PO ; Start 07/21/18 at 09:00 SHEELA GOLD MD July 20, 2018 17:56
[2018-07-20 20:00] VITALS: BP 189/83; PULSE 82; RESP 17
[2018-07-20] MEDS: INSULIN GLARGINE [LANTus] (100 UNITS/ML) SYG SC SCH (20:00)
[2018-07-20 21:30] VITALS: BP 127/59; PULSE 73; RESP 18
[2018-07-21 01:14] VITALS: BP 138/62; PULSE 81; RESP 18
[2018-07-21] MEDS: ACCU-CHEK XX SCH (01:27)
[2018-07-21] MEDS: ACETAMINOPHEN 650MG/20.3ML CUP PO PRN (06:15)
[2018-07-21 07:20] VITALS: BP 180/72; PULSE 75; RESP 16
[2018-07-21] MEDS: FAMOTIDINE 20 MG TAB PO SCH (08:08)
[2018-07-21] MEDS: HYDROCHLOROTHIAZIDE 25 MG TAB PO SCH (08:09)
[2018-07-21] MEDS: INSULIN ASPART [NOVOLOG] 3 ML PEN SC SCH ×6 (08:10→17:48)
[2018-07-21] MEDS: HEPARIN 5,000 UNIT/1 ML VIAL SC SCH (08:11)
[2018-07-21] MEDS ORDERED: AMLODIPINE 10 MG TAB PO SCH (09:00)
[2018-07-21] MEDS ORDERED: AMLO-147 PO (09:19)
[2018-07-21] MEDS ORDERED: BLOO1EAC85 MC (09:19)
[2018-07-21] MEDS ORDERED: NOVO3I SC (09:19)
[2018-07-21] MEDS ORDERED: Insulin Glargine SC (09:19)
--- NOTE | 2018-07-21 13:56 | CONS ---
Assessment/Plan Assessment/Plan Assessment/Plan (Daily) 1. acute kidney injury on CKD III 2. HTN emergency 3. h/o possible CKD III due to DM nephropathy and HTN nephrosclerosis 4. H/O HTN 5. Anemia of CKD III with Iron deficiency 6. Right kidney angiomyolipoma, Left kidney non obstructing Calculus Plan: BUN/Cr 34/1.89, Continue bicitra 30ml PO BID for acidosis ,, pt may be near her baseline Cr continue IV iron Ferrlecti x 5 days for iron deficiency Renal US showed R kidney 10.5c, left kidney 10.9c, CT showed 13 mm fat density lesion in the mid right kidney suggestive of angiomyolipoma. Follow up with me in clinic in 1-2 week upon discharge( please provide my office address and Phone number) will follow up Consultation Date/Type/Reason Admit Date/Time July 15, 2018 at 21:21 Initial Consult Date 07/16/18 Type of Consult NEPHROLOGY Requesting Provider: MAICO LUBIN Date/Time of Note DATE: 07/21/18 TIME: 13:56 Exam/Review of Systems Exam Vitals Vital Signs Date Temp Pulse Resp B/P (MAP) Pulse Ox O2 O2 Flow FiO2 Time Delivery Rate 07/21/18 98.4 75 16 180/72 99 07:20 (108) 07/20/18 Room Air 02:00 Intake and Output 07/20/18 07/20/18 07/21/18 1515:00 23:00 07:00 IntakeIntake Total 920 ml 480 ml BalanceBalance 920 ml 480 ml Exam Constitutional: alert, awake, no acute distress Respiratory: clear to auscultation, normal air movement, diminished breath sounds Cardiovascular: regular rate and rhythm, nl pulses Gastrointestinal: soft, non-tender Musculoskeletal: nl extremities to inspection Extremities: normal pulses Neurological: CYTOGENETICIST II-XII intact, nl mental status, nl speech, nl strength Results Result Diagram: 07/21/18 0422 07/21/18 0422 Results 24hrs Laboratory Tests Test 07/20/18 17:33 07/20/18 20:34 07/21/18 04:22 07/21/18 08:08 Bedside Glucose 92 73 144 White Blood Count 9.0 Red Blood Count 3.32 L Hemoglobin 8.9 L Hematocrit 28.4 L Mean Corpuscular 85.5 Volume Mean Corpuscular 26.8 L Hemoglobin Mean Corpuscular 31.3 L Hemoglobin Concent Red Cell 15.0 H Distribution Width Platelet Count 348 Mean Platelet 11.8 H Volume Immature 1.900 H Granulocytes % Neutrophils % 49.8 Lymphocytes % 36.0 Monocytes % 8.4 Eosinophils % 3.2 Basophils % 0.7 Nucleated Red 0.0 Blood Cells % Immature 0.170 H Granulocytes # Neutrophils # 4.5 Lymphocytes # 3.2 H Monocytes # 0.8 Eosinophils # 0.3 Basophils # 0.1 Nucleated Red 0.0 Blood Cells # Sodium Level 139 Potassium Level 4.4 Chloride Level 115 H Carbon Dioxide 21 Level Anion Gap 3 L Blood Urea 34 H Nitrogen Creatinine 1.89 H Est Glomerular 28 L Filtrat Rate mL/min Glucose Level 118 Calcium Level 8.4 Test 07/21/18 11:16 07/21/18 13:02 Lab Scanned Report REFERENCE LAB Bedside Glucose 134 Medications Medication Current Medications Ondansetron HCl (Zofran Inj) 4 mg Q6H PRN IV NAUSEA AND/OR VOMITING Last administered on 07/16/18 05:16; Admin Dose 4 MG; Start 07/15/18 at 22:30 Albuterol/ Ipratropium (Duoneb) 3 ml Q2H RESP THERAPY PRN NEB SHORTNESS OF BREATH; Start 07/15/18 at 22:30 Acetaminophen (Tylenol Liquid) 650 mg Q6H PRN PO PAIN LEVEL 1-3 OR FEVER Last administered on 07/21/18 06:15; Admin Dose 650 MG; Start 07/15/18 at 22:30 Heparin Sodium (Porcine) (Heparin (5000 Units/1ml)) 5,000 unit Q12 SC Last administered on 07/21/18 08:11; Admin Dose 5,000 UNIT; Start 07/16/18 at 09:00 Diagnostic Test (Pha) (Accu-Chek) 1 ea 02 XX Last administered on 07/19/18 01:48; Admin Dose 1 EA; Start 07/17/18 at 02:00 Insulin Aspart (Novolog Insulin Pen) NOVOLOG *MODERATE* ALGORITHM WITH MEALS BEDTIME SC Last administered on 07/21/18 08:10; Admin Dose 1 UNIT; Start 07/16/18 at 11:30 Miscellaneous Information 1 ea NOTE XX ; Start 07/16/18 at 12:30 Glucose (Glutose) 15 gm Q15M PRN PO DECREASED GLUCOSE; Start 07/16/18 at 12:30 Glucose (Glutose) 22.5 gm Q15M PRN PO DECREASED GLUCOSE; Start 07/16/18 at 12:30 Dextrose (D50w Syringe) 25 ml Q15M PRN IV DECREASED GLUCOSE; Start 07/16/18 at 12:30 Dextrose (D50w Syringe) 50 ml Q15M PRN IV DECREASED GLUCOSE; Start 07/16/18 at 12:30 Glucagon (Glucagen) 1 mg Q15M PRN IM DECREASED GLUCOSE; Start 07/16/18 at 12:30 Glucose (Glutose) 15 gm Q15M PRN BUCCAL DECREASED GLUCOSE; Start 07/16/18 at 12:30 Famotidine (Pepcid) 20 mg DAILY PO Last administered on 07/21/18 08:08; Admin Dose 20 MG; Start 07/18/18 at 09:00 Insulin Aspart (Novolog Insulin Pen) 12 unit WITH MEALS SC Last administered on 07/21/18 13:04; Admin Dose 12 UNIT; Start 07/19/18 at 12:00 Insulin Glargine (Lantus) 35 units DAILY@2000 SC Last administered on 07/19/18 20:09; Admin Dose 35 UNITS; Start 07/19/18 at 20:00 Hydralazine HCl (Apresoline) 10 mg Q4H PRN IV SBP>160 Last administered on 07/20/18at 20:37; Admin Dose 10 MG; Start 07/19/18 at 19:30 Enalaprilat (Vasotec Iv) 1.25 mg Q4H PRN IV ELEVATED BLOOD PRESSURE Last administered on 07/19/18 18:10; Admin Dose 1.25 MG; Start 07/19/18 at 18:00 Hydrochlorothiazide (Hydrochlorothiazide) 25 mg DAILY PO Last administered on 07/21/18 08:09; Admin Dose 25 MG; Start 07/20/18 at 15:00 Amlodipine Besylate (Norvasc) 10 mg DAILY PO Last administered on 07/21/18 08:09; Admin Dose 10 MG; Start 07/21/18 at 09:00 GLORIA MANSFIELD MD July 21, 2018 13:56
[2018-07-21 14:51] VITALS: BP 131/63; PULSE 82; RESP 16
--- NOTE | 2018-07-21 15:54 | PDOCDIS ---
Discharge Instructions DIAGNOSIS Discharge Diagnosis Uncontrolled diabetes and hypertension CONDITION [id number] Patient Condition: [id number] Good HOME CARE INSTRUCTIONS: [id number] Special Diet: [id number] Consistent carbohydrate ACTIVITY: [id number] Activity Restrictions: [id number] No Restrictions FOLLOW UP/APPOINTMENTS Follow-up Plan 1. Take all medications as prescribed, including insulin and blood pressure medications. 2. See your primary care doctor in 1-2 weeks. SHEELA GOLD MD July 21, 2018 15:54
--- NOTE | 2018-07-21 18:53 | DS ---
Date/Time of Note Date/Time of Note DATE: 07/21/18 TIME: 18:49 Discharge Summary Admission/Discharge Info Admit Date/Time July 15, 2018 at 21:21 Discharge Date/Time July 21, 2018 Discharge Diagnosis Uncontrolled diabetes and hypertension Patient Condition: Good Hx of Present Illness This is a 53-year-old female with a history of hypertension and diabetes who presented to the ER complaining of generalized weakness, feeling depressed. She has not taken her medication for 6 months. She recently moved from [place] to live with her daughter. When presented to ER, blood pressure was 245/108. She was found to have a blood glucose of around 850, no DKA. Creatinine 2, WBC 12,000, hemoglobin 11. She has been started on insulin drip and admitted to ICU. Hospital Course The patient was initially admitted to ICU on insulin gtt and IV antihypertensives. She was weaned off and transferred to med/surg. Met with clinical educator. She has very high insulin requirements (currently about 60u/day) so will continue subQ insulin. She is blind so will need to use pens and count the clicks. I also prescribed a voice glucometer. Oral blood pressure meds titrated up; she will be discharged on her home HCTZ as well as norvasc. Also CM arranged home PT and OT. Home Meds Active Scripts Blood-Glucose Meter (Blood Glucose Meter) 1 Each Each, EACH , #1 Prov:SHEELA GOLD MD 07/21/18 [Insulin Glargine] 100 UNITS/ML SOLN No Conflict Check, 35 UNITS SC DAILY@1999, #7 EA Prov:SHEELA GOLD MD 07/21/18 Insulin Aspart* (Novolog Insulin Pen*) 100 Unit/Ml Soln, 10 UNIT SC WITH MEALS, #7 EA 3 Refills Prov:SHEELA GOLD MD 07/21/18 Amlodipine Besylate* (Amlodipine Besylate*) 10 Mg Tablet, 10 MG PO DAILY, #60 TAB 3 Refills Prov:SHEELA GOLD MD 07/21/18 Reported Medications Hydrochlorothiazide* (Hydrochlorothiazide*) 25 Mg Tab, 25 MG PO DAILY, #30 TAB 07/15/18 Discontinued Reported Medications Amoxicillin/Potassium Clav (Amox-Clav 875-125 mg Tablet) 875-125 mg Tab, 1 TAB PO BID, #20 TAB 07/15/18 Follow-up Plan 1. Take all medications as prescribed, including insulin and blood pressure med ications. 2. See your primary care doctor in 1-2 weeks. Primary Care Provider Care Physician No Primary Time spent on discharge: > 30 minutes Pending Labs Laboratory Tests Test 07/20/18 20:34 07/21/18 04:22 07/21/18 08:08 07/21/18 11:16 Bedside 73 144 Glucose mg/dL (70-220) mg/dL (70-220) White Blood 9.0 Count 10^3/ul (4.8-1 0.8) Red Blood 3.32 Count 10^6/ul (4.20- 5.40) Hemoglobin 8.9 g/dl (12.0-16. 0) Hematocrit 28.4 % (37.0-47.0) Mean 85.5 Corpuscular fl (82.0-101.0 Volume ) Mean 26.8 Corpuscular pg (29.0-33.0) Hemoglobin Mean 31.3 Corpuscular g/dl (32.0-37. Hemoglobin Conc 0) ent Red Cell 15.0 Distribution % (11.5-14.5) Width Platelet Count 348 10^3/UL (140-4 15) Mean Platelet 11.8 Volume fl (7.4-10.4) Immature 1.900 Granulocytes % % (0.001-0.429 ) Neutrophils % 49.8 % (39.0-77.0) Lymphocytes % 36.0 % (15.0-51.0) Monocytes % 8.4 % (0.0-11.0) Eosinophils % 3.2 % (0.0-7.0) Basophils % 0.7 % (0.0-2.0) Nucleated Red 0.0 Blood Cells % /100WBC (0.0-0 .0) Immature 0.170 Granulocytes # 10^3/ul (0.0-0 .031) Neutrophils # 4.5 10^3/ul (1.6-7 .5) Lymphocytes # 3.2 10^3/ul (0.8-2 .9) Monocytes # 0.8 10^3/ul (0.3-0 .9) Eosinophils # 0.3 10^3/ul (0.0-0 .5) Basophils # 0.1 10^3/ul (0.0-0 .1) Nucleated Red 0.0 Blood Cells # 10^3/ul (0.0-0 .0) Sodium Level 139 mmol/L (135-14 4) Potassium 4.4 Level mmol/L (3.5-5. 1) Chloride Level 115 mmol/L (97-110 ) Carbon Dioxide 21 Level mmol/L (21-31) Anion Gap 3 (5-13) Blood Urea 34 Nitrogen mg/dl (7-20) Creatinine 1.89 mg/dl (0.44-1. 00) Est Glomerular 28 Filtrat mL/min (>60) Rate mL/min Glucose Level 118 mg/dl (70-220) Calcium Level 8.4 mg/dl (8.4-10. 2) Lab Scanned REFERENCE Report LAB [id number] Test 07/21/18 13:02 07/21/18 17:46 Bedside 134 124 Glucose mg/dL (70-220) mg/dL (70-220) SHEELA GOLD MD July 21, 2018 18:53
[2018-07-21 19:27] VITALS: BP 161/70; PULSE 85; RESP 16
== END 2018-07-21 20:10 | disposition home health service (06) | DRG 637 ==
LOC: E/R 17:47 → ICU 21:21 → 6WM 07-17 12:46 → 2NE 07-19 21:14
PROVIDERS: ADMIT Internal Medicine; ATTEND Internal Medicine
DX: E11.00 Type 2 diabetes mellitus with hyperosmolarity without nonketotic hyperglycemic-hyperosmolar coma (NKHHC) (principal); R65.11 Systemic inflammatory response syndrome (SIRS) of non-infectious origin with acute organ dysfunction; N17.9 Acute kidney failure, unspecified; I16.1 Hypertensive emergency; E87.2 Acidosis; E11.65 Type 2 diabetes mellitus with hyperglycemia; I12.9 Hypertensive chronic kidney disease with stage 1 through stage 4 chronic kidney disease, or unspecified chronic kidney disease; E11.22 Type 2 diabetes mellitus with diabetic chronic kidney disease; E78.00 Pure hypercholesterolemia, unspecified; D63.1 Anemia in chronic kidney disease; E03.9 Hypothyroidism, unspecified; Z91.14 Patient's other noncompliance with medication regimen; N18.3 Chronic kidney disease, stage 3 (moderate); E87.6 Hypokalemia; D17.71 Benign lipomatous neoplasm of kidney; N20.0 Calculus of kidney; Z87.891 Personal history of nicotine dependence; D50.9 Iron deficiency anemia, unspecified; H54.7 Unspecified visual loss; E11.21 Type 2 diabetes mellitus with diabetic nephropathy
CPT/HCPCS: 36415; 71045; 74150; 76775; 80048; 80053; 80061; 81001; 81003; 82436; 82550; 82570; 82803; 82962; 83036; 83540; 83735; 84100; 84133; 84300; 84439; 84443; 84484; 84560; 85025; 85610; 87081; 89190; 93005; 93971; 96361; 96372; 96374; 96375; 97162; 97167; J0360; J1644; J1815; J2270; J2405; J2916; J3475; J3480; J7030; J7050